=== PATIENT | female | born 1955 | race African-American/Black ===

== ENCOUNTER 2017-05-12 03:26 | Emergency (ER) | payer OTHER ==
[2017-05-12 03:37] VITALS: BMI 29.7
[2017-05-12 04:26] LABS: BASO % 0.5 % (0-2.0); HEMATOCRIT 38.4 % (32.4-45.2); LYMPH % 28.1 % (8-40); MCH 32.1 pg (25.7-33.7); MEAN CELL VOLUME 94.5 fl (80-96); MONO % 6.5 % (3.8-10.2); NEUT % 62.9 % (42.8-82.8); PLATELET COUNT 265 K/MM3 (134-434); RBC 4.06 M/mm3 (3.60-5.2); RDW 14.8 % (11.6-15.6); WHITE BLOOD COUNT 7.6 K/mm3 (4.0-10.0)
--- NOTE | 2017-05-12 04:38 | PDOC ---
History of Present Illness - General Chief Complaint: Palpitations Stated Complaint: PAIN,,RAPID HEART BEAT Time Seen by Provider: 05/12/17 04:16 History Source: Patient Exam Limitations: No Limitations - History of Present Illness Travel History: No Initial Comments: 05/12/17 06:13 Best Contact: Pmhx:HTN, Hyperlipidemia Pshx:N/A Allergies: NKDA 62-year-old female presents to the emergency department complaining of epigastric and right upper quadrant pain. Patient states on April 27, she had cornbeef and cabbage. Within 2 hours, she started experiencing right upper quadrant/epigastric pain. The symptoms worsen after taking [place]. The pain is alleviated intermittently at rest. Over the course of 2 weeks, she's been experiencing right upper quadrant 4/10 "palpation"discomfort intermittently after almost every meal. She denies fever/chills, nausea/vomiting , chest pain, shortness of breath, flank pains. Patient has no history of gallbladder disease Past History - Past Medical History Allergies/Adverse Reactions: Allergies Allergy/AdvReac Type Severity Reaction Status Date / Time No Known Allergies Allergy Verified 05/12/17 03:36 Home Medications: Ambulatory Orders Amlodipine Besylate 10 mg PO DAILY 05/12/17 Aspirin [ASA -] 81 mg PO DAILY 05/12/17 Atorvastatin Ca [Lipitor] 20 mg PO DAILY 05/12/17 Hydrochlorothiazide [Hctz -] 25 mg PO DAILY 05/12/17 Multivitamin [One Daily] 1 each PO DAILY 05/12/17 - Suicide/Smoking/Psychosocial Hx Smoking History: Current every day smoker Have you smoked in the past 12 months: Yes Number of Cigarettes Smoked Daily: 10 Information on smoking cessation initiated: No Hx Alcohol Use: No Drug/Substance Use Hx: No Review of Systems - Review of Systems Able to Perform ROS?: Yes Comments:: 05/12/17 06:08 CONSTITUTIONAL: Absent: fever, chills, diaphoresis, generalized weakness, malaise, loss of appetite HEENT: Absent: rhinorrhea, nasal congestion, throat pain, throat swelling, difficulty swallowing, mouth swelling, ear pain, eye pain, visual Changes CARDIOVASCULAR: Absent: chest pain, loss of consciousness, palpitations, irregular heart rate, peripheral edema RESPIRATORY: Absent: cough, shortness of breath, dyspnea with exertion, orthopnea, wheezing, stridor, hemoptysis GASTROINTESTINAL: +RUQ pain/epigastric pain Absent:abdominal distension, nausea, vomiting, diarrhea, constipation, melena, hematochezia GENITOURINARY: Absent: dysuria, frequency, urgency, hesitancy, hematuria, flank pain, genital pain MUSCULOSKELETAL: Absent: myalgia, arthralgia, joint swelling SKIN: Absent: rash, itching, pallor HEMATOLOGIC/IMMUNOLOGIC: Absent: easy bleeding, easy bruising, lymphadenopathy, frequent infections Is the patient limited Tajik proficient: No *Physical Exam - Vital Signs Last Vital Signs Temp Pulse Resp BP Pulse Ox 97.6 F 62 18 171/65 96 05/12/17 03:36 05/12/17 03:36 05/12/17 03:36 05/12/17 03:36 05/12/17 03:36 - Physical Exam Comments: 05/12/17 06:09 GENERAL: Well developed, well nourished. Awake and alert. No acute distress. HEENT: Normocephalic, atraumatic. PERRLA, EOMI. No conjunctival pallor. Sclera are non- icteric. Moist mucous membranes. Oropharynx is clear. NECK: Supple. Full ROM. No JVD. Carotid pulses 2+ and symmetric, without bruits. No thyromegaly. No lymphadenopathy. CARDIOVASCULAR: Regular rate and rhythm. No murmurs, rubs, or gallops. Distal pulses are 2+ and symmetric. PULMONARY: No evidence of respiratory distress. Lungs clear to auscultation bilaterally. No wheezing, rales or rhonchi. ABDOMINAL: +RUQ/Epigastric pain Soft. Non-distended. No rebound or guarding. No organomegaly. Normoactive bowel sounds. MUSCULOSKELETAL Normal range of motion at all joints. No bony deformities or tenderness. No CVA tenderness. EXTREMITIES: No cyanosis. No clubbing. No edema. No calf tenderness. SKIN: Warm and dry. Normal capillary refill. No rashes. No jaundice. ED Treatment Course - LABORATORY CBC & Chemistry Diagram: 05/12/17 04:13 05/12/17 04:13 - ADDITIONAL ORDERS Additional order review: 05/12/17 04:13 RBC 4.06 MCV 94.5 MCHC 34.0 RDW 14.8 MPV 8.0 Neutrophils % 62.9 Lymphocytes % 28.1 Monocytes % 6.5 Eosinophils % 2.0 Basophils % 0.5 - RADIOLOGY Radiograph Interpretation: 05/12/17 06:16 US limited: Progress Note - Progress Note Progress Note: 0701hrs: Signed out to SARA Vargas *DC/Admit/Observation/Transfer Diagnosis at time of Disposition: Abdominal pain Qualifiers: Abdominal location: right lower quadrant Qualified Code(s): R10.31 - Right lower quadrant pain - Referrals - Patient Instructions - Post Discharge Activity
[2017-05-12] MEDS ORDERED: FAMOTIDINE IV 20 MG/12 ML VIAL IVPUSH ONE (04:55)
[2017-05-12 05:08] LABS: ALBUMIN 3.5 g/dl (3.4-5.0); ANION GAP 4 (8-16); BILIRUBIN,TOTAL 0.2 mg/dL (0.2-1.0); CHLORIDE 105 mmol/L (98-107); CO2 30 mmol/L (21-32); GLUCOSE,RANDOM 105 mg/dL (74-106); POTASSIUM 4.1 mmol/L (3.5-5.1); SGOT/AST 19 U/L (15-37); SODIUM 139 mmol/L (136-145); TOT PROT 7.5 g/dl (6.4-8.2)
[2017-05-12] MEDS ORDERED: FAMOTIDINE 20 MG/50 ML IVPB 20 MG/50 ML MG IVPB ONE (05:25)
[2017-05-12 05:47] LABS: ALK PHOS 126 U/L (45-117); BLOOD UREA NITROGEN 16 mg/dL (7-18); SGPT/ALT 17 U/L (12-78)
[2017-05-12] MEDS ORDERED: morphine CARPU-JECT 2 MG/1 ML DISP.SYRIN IVPUSH ONE (05:50)
[2017-05-12] MEDS ORDERED: morphine SULFATE 4 MG/ML VIAL ONE (05:58)
--- NOTE | 2017-05-12 07:52 | PDOC ---
*Physical Exam - Vital Signs Last Vital Signs Temp Pulse Resp BP Pulse Ox 97.6 F 62 18 171/65 96 05/12/17 03:36 05/12/17 03:36 05/12/17 03:36 05/12/17 03:36 05/12/17 03:36 - Physical Exam General Appearance: Yes: Appropriately Dressed. No: Apparent Distress HEENT: positive: Normal Voice Neck: positive: Supple Respiratory/Chest: negative: Respiratory Distress Gastrointestinal/Abdominal: positive: Normal Bowel Sounds, Soft. negative: Tender, Distended, Guarding, Rebound Musculoskeletal: negative: CVA Tenderness Integumentary: positive: Dry, Warm Neurologic: positive: Fully Oriented, Alert, Normal Mood/Affect ED Treatment Course - LABORATORY CBC & Chemistry Diagram: 05/12/17 04:13 05/12/17 04:13 - ADDITIONAL ORDERS Additional order review: Laboratory Results 05/12/17 05/12/17 04:13 04:12 Sodium 139 Potassium 4.1 Chloride 105 Carbon Dioxide 30 Anion Gap 4 L BUN 16 Creatinine 1.0 Creat Clearance w eGFR 56.56 Random Glucose 105 Calcium 9.0 Total Bilirubin 0.2 AST 19 ALT 17 Alkaline Phosphatase 126 H Troponin I < 0.02 Total Protein 7.5 Albumin 3.5 Lipase 128 TSH 2.33 05/12/17 04:13 RBC 4.06 MCV 94.5 MCHC 34.0 RDW 14.8 MPV 8.0 Neutrophils % 62.9 Lymphocytes % 28.1 Monocytes % 6.5 Eosinophils % 2.0 Basophils % 0.5 - Medications Given in the ED: ED Medications Discontinued Medications Generic Name Dose Route Start Last Admin Trade Name Carolann PRN Reason Stop Dose Admin Famotidine 20 mg in 12 mls @ 144 mls/hr 05/12/17 04:55 05/12/17 06:04 Pepcid 20 Mg/12 Ml Push IVPUSH 05/12/17 04:59 144 mls/hr ONCE ONE Administration Morphine Sulfate 2 mg 05/12/17 05:50 05/12/17 06:04 Morphine Injection - IVPUSH 05/12/17 05:51 2 mg ONCE ONE Administration Medical Decision Making - Medical Decision Making 05/12/17 07:51 Signed out to me at 7am 62 yo F, no sig hx, here w/ RUQ pain. labs unremarkable. US pending. Pain since improved w/ meds 04/01/18 10:14 Pt status post ultrasound was read as no obvious cholelithiasis or evidence of cholecystitis. Possible diffuse hepatic steatosis seen with a 2 cm R hepatic cyst. States pain has since improved. Patient states she's had right upper quadrant pain for several days with no association with food. No nausea, vomiting, changes to bowel movements, fever or chills. No history of similar pain in the past. No history of gallstones or kidney stones. No h/o excessive ETOH intake. Patient denies any chest pain or shortness of breath 05/12/17 10:42 Pain improved with meds. Patient stable for discharge with PMD follow-up *DC/Admit/Observation/Transfer Diagnosis at time of Disposition: RUQ pain, Fatty liver - Discharge Dispostion Disposition: HOME Condition at time of disposition: Improved - Prescriptions Prescriptions: Tramadol HCl 50 mg PO Q6H #12 tablet MDD 200 mg - Referrals - Patient Instructions Printed Discharge Instructions: Nonalcoholic Fatty Liver Disease Additional Instructions: Your ultrasound showed a condition called fatty liver. This can be caused by alcohol, diet high in fats, high cholesterol, etc Take medication as directed and follow up with your PMD next week - Post Discharge Activity
[2017-05-12] MEDS ORDERED: traMADol HCL 50 MG TABLET PO ONE (10:17)
[2017-05-12] MEDS ORDERED: KETOROLAC TROMETHAMINE 30 MG/1 ML VIAL IVPUSH ONE (10:17)
[2017-05-12] MEDS ORDERED: traMADol HCL 50 MG TABLET ONE (10:49)
[2017-05-12] MEDS ORDERED: KETOROLAC TROMETHAMINE 30 MG/1 ML VIAL ONE (10:50)
[2017-05-12 11:22] VITALS: BP 147/65; PULSE 63; TEMP 97.8
--- NOTE | 2017-05-12 15:59 | EKG ---
Test Reason : Blood Pressure : / mmHG Vent. Rate : 060 BPM Atrial Rate : 060 BPM P-R Int : 142 ms QRS Dur : 076 ms QT Int : 460 ms P-R-T Axes : 063 010 041 degrees QTc Int : 460 ms NORMAL SINUS RHYTHM LEFT ATRIAL ENLARGEMENT NONSPECIFIC ST ABNORMALITY BORDERLINE ECG NO PREVIOUS ECGS AVAILABLE Confirmed by MD KUSHAL, JAN ([id number]) on 05/12/2017 3:58:59 PM Referred By: Confirmed By:JAN FATIMA MD
== END 2017-05-12 11:22 | disposition home or self-care (01) ==
LOC: JER 03:26
PROC: 3E033GC Introduction of Other Therapeutic Substance into Peripheral Vein, Percutaneous Approach (ICD-10-PCS; principal; 2017-05-12)
PROC: 3E033NZ Introduction of Analgesics, Hypnotics, Sedatives into Peripheral Vein, Percutaneous Approach (ICD-10-PCS; 2017-05-12)
PROC: 3E0333Z Introduction of Anti-inflammatory into Peripheral Vein, Percutaneous Approach (ICD-10-PCS; 2017-05-12)
DX: K76.0 Fatty (change of) liver, not elsewhere classified (principal); Z79.82 Long term (current) use of aspirin
CPT/HCPCS: 36415; 71045-TC-FY; 76705-TC; 80053; 83690; 84443; 84484; 85025; 93005; 93010; 96374; 96375; 99285-25

== ENCOUNTER 2019-08-07 23:31 | Inpatient (IN) | payer OTHER ==
[2019-08-07 23:45] VITALS: BMI 29.7
--- NOTE | 2019-08-07 23:47 | PDOC ---
Attending Attestation - Resident Resident Name: MariselaAndressa - ED Attending Attestation I have performed the following: I have examined & evaluated the patient, The case was reviewed & discussed with the resident, I agree w/resident's findings & plan - HPI HPI: 08/08/19 02:17 Pt tripped at home. She has a foot drag on the left side due to old CVA deficits. She fell onto the left knee, and she twisted and broke her ankle. Pt has no other complains. 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) - Physicial Exam PE: 08/08/19 02:19 Heart and Lungs normal HEENT normal abd soft NT ND no flank pain left ankle deformity medially and laterally - Medical Decision Making 08/08/19 01:57 NIKITA RILEY Right parietal and occipital ischemic infarcts have evolved since 06/11/19. Patient Name: NIKITA RILEY THIS IS A PRELIMINARY REPORT FROM IMAGING NURSING CLINICAL DIRECTOR DATE OF SERVICE: 2019-08-08 00:24:54 IMAGES: 139 EXAM: CT HEAD WITHOUT CONTRAST No acute hemorrhage, mass or acute territorial infarct. Chronic infarcts right parietal and occipital lobes and bilateral cerebellum. Age-related involutional changes. No skull fracture. Mucoperiosteal thickening paranasal sinuses. Visualized mastoid air cells clear. Dental disease. 08/08/19 01:58 Patient Name: NIKITA RILEY THIS IS A PRELIMINARY REPORT FROM IMAGING NURSING CLINICAL DIRECTOR DATE OF SERVICE: 2019-08-08 00:12:42 IMAGES: 276 EXAM: CT CERVICAL SPINE WITHOUT CONTRAST No acute fracture or traumatic malalignment. Multilevel spondylosis. Moderate canal stenosis C5-C6. Slight reversal of cervical lordosis, possibly due to positioning or muscle spasm. 08/08/19 02:17 Chem is normal Discharge - Discharge Information Problems reviewed: Yes Clinical Impression/Diagnosis: Bimalleolar ankle fracture Qualifiers: Encounter type: initial encounter Fracture type: closed Laterality: left Qualified Code(s): S82.842A - Displaced bimalleolar fracture of left lower leg, initial encounter for closed fracture Closed head injury Qualifiers: Encounter type: initial encounter Qualified Code(s): S09.90XA - Unspecified injury of head, initial encounter Fall Qualifiers: Encounter type: initial encounter Qualified Code(s): W19.XXXA - Unspecified fall, initial encounter Condition: Stable - Follow up/Referral - Patient Discharge Instructions - Post Discharge Activity
[2019-08-07] MEDS ORDERED: ACETAMINOPHEN 1000 MG/100 ML VIAL (NON FORMULARY) IVPB ONE (23:59)
[2019-08-07] MEDS ORDERED: morphine CARPU-JECT 4 MG/1 ML DISP.SYRIN IVPUSH ONE (23:59)
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
[2019-08-08] MEDS ORDERED: morphine SULFATE 4 MG/ML VIAL ONE (01:13)
[2019-08-08] MEDS ORDERED: ACETAMINOPHEN INJECTION 100 ML IVPB ONE (01:26)
[2019-08-08 01:29] LABS: BASO % 0.2 % (0-2.0); EOS % 0.3 % (0-4.5); HEMATOCRIT 39.6 % (32.4-45.2); LYMPH % 10.1 % (8-40); MCH 30.6 pg (25.7-33.7); MCHC 32.8 g/dl (32.0-36.0); MEAN CELL VOLUME 93.1 fl (80-96); MEAN PLT VOLUME 8.8 fl (7.5-11.1); MONO % 4.4 % (3.8-10.2); PLATELET COUNT 272 K/MM3 (134-434); RBC 4.26 M/mm3 (3.60-5.2); RDW 15.7 % (11.6-15.6); WHITE BLOOD COUNT 10.7 K/mm3 (4.0-10.0)
[2019-08-08 01:53] LABS: ALBUMIN 3.9 g/dl (3.4-5.0); BILIRUBIN,TOTAL 0.2 mg/dL (0.2-1); BLOOD UREA NITROGEN 19.3 mg/dL (7-18); CALCIUM 9.3 mg/dL (8.5-10.1); TOT PROT 7.8 g/dl (6.4-8.2)
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
[2019-08-08 02:42] LABS: INR 1.05 (0.83-1.09); PROTHROMBIN TIME (PATIENT) 12.4 SEC (9.7-13.0)
[2019-08-08 02:44] LABS: ACTIVATED PTT 25.1 SECONDS (25.2-36.5)
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
[2019-08-08] MEDS ORDERED: HEPARIN NA (PORCINE) 5,000 UNITS/ML 1ML VIAL ONE (05:46)
[2019-08-08 06:06] LABS: HEMATOCRIT 37.5 % (32.4-45.2); HEMOGLOBIN 12.4 GM/dL (10.7-15.3); MCH 30.3 pg (25.7-33.7); MEAN CELL VOLUME 91.8 fl (80-96); MEAN PLT VOLUME 8.3 fl (7.5-11.1); PLATELET COUNT 238 K/MM3 (134-434); RBC 4.08 M/mm3 (3.60-5.2); RDW 15.6 % (11.6-15.6); WHITE BLOOD COUNT 8.5 K/mm3 (4.0-10.0)
[2019-08-08] MEDS: HEPARIN NA (PORCINE) 5,000 UNITS/ML 1ML VIAL SQ SCH ×3 (06:09→22:00)
[2019-08-08 06:29] LABS: ALBUMIN 3.4 g/dl (3.4-5.0); BILIRUBIN,TOTAL 0.3 mg/dL (0.2-1); BLOOD UREA NITROGEN 17.2 mg/dL (7-18); CALCIUM 8.7 mg/dL (8.5-10.1); PHOSPHOROUS 3.8 mg/dL (2.5-4.9); POTASSIUM 3.5 mmol/L (3.5-5.1); TOT PROT 7.1 g/dl (6.4-8.2)
[2019-08-08] MEDS: SODIUM CHLORIDE 1,000 ML IV SCH ×2 (08:13→22:09)
--- NOTE | 2019-08-08 09:40 | CON.NEURO ---
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 No: Alzheimer's Cardio/Vascular: Yes: HTN, Hyperlipdemia. No: AFIB - Alcohol/Substance Use Hx Alcohol Use: Yes - Smoking History Smoking history: Never smoked Have you smoked in the past 12 months: No Aproximately how many cigarettes per day: 10 Home Medications - Allergies Allergies/Adverse Reactions: Allergies Allergy/AdvReac Type Severity Reaction Status Date / Time No Known Allergies Allergy Verified 08/07/19 23:45 - Home Medications Home Medications: Ambulatory Orders Amlodipine Besylate 10 mg PO DAILY 05/12/17 Aspirin [ASA -] 81 mg PO DAILY tab.chew 06/15/19 Atorvastatin Ca [Lipitor] 80 mg PO HS tablet 06/15/19 Clopidogrel Bisulfate [Plavix -] 75 mg PO DAILY tablet 06/15/19 Hydrochlorothiazide [Hctz -] 12.5 mg PO DAILY cap 06/15/19 Family Medical History Family History: Unremarkable Review of Systems - Review of Systems Constitutional: reports: No Symptoms Eyes: reports: No Symptoms Neurological: reports: Dizziness, Headache, Incoordination Physical Exam-Neuro Vital Signs: Vital Signs Temperature 98.4 F 08/08/19 06:09 Pulse Rate 77 08/08/19 06:09 Respiratory Rate 14 08/08/19 06:09 Blood Pressure 156/79 08/08/19 06:09 O2 Sat by Pulse Oximetry (%) 96 08/08/19 06:09 Constitutional: Yes: Well Nourished Neck: Yes: WNL Cardiovascular: Yes: WNL Labs: CBC, BMP 08/08/19 05:58 08/08/19 05:58 INR, PTT INR 1.05 (0.83-1.09) 08/08/19 02:12 - Neuro Exam Level Of Consciousness: Yes: Oriented to Person, Oriented to Place, Oriented to Time Eyes: Yes: PERRLA Speech: WNL Dominant Hand: Right Cranial Nerves II-XII Intact: Yes Gag: Present DTR's: 0 Left Bicep, 0 Right Bicep, 1+ Left Tricep, 1+ Right Tricep, 1+ Left Brachioradialis, 1+ Right Brachioradialis Response to light touch: Normal Response to pain prick: Normal Response to temperature: Abnormal Response to vibration: Abnormal Motor Strength: 3/5: Left Arm, Left Leg, 4/5: Right Arm, Right Leg Gait: Deferred Imaging - Results Cat Scan: Image Reviewed MRI: Image Reviewed Problem List - Problems (1) Bimalleolar ankle fracture Code(s): S82.843A - DISPLACED BIMALLEOLAR FRACTURE OF UNSP LOWER LEG, INIT Qualifiers: Encounter type: initial encounter Fracture type: closed Laterality: left Qualified Code(s): S82.842A - Displaced bimalleolar fracture of left lower leg, initial encounter for closed fracture (2) Bradycardia Code(s): R00.1 - BRADYCARDIA, UNSPECIFIED (3) CVA (cerebral vascular accident) Code(s): I63.9 - CEREBRAL INFARCTION, UNSPECIFIED Qualifiers: CVA mechanism: unspecified Qualified Code(s): I63.9 - Cerebral infarction, unspecified Assessment/Plan Doubt new CVA Bradycardia Orthoststic dysfunction 1. Fall precautions 2. Head Ct 08/08 3. Check orthostais 4. Asa + Plavix gris sierra Many thanks Laura Escobedo MD
[2019-08-08] MEDS ORDERED: HYDROCHLOROTHIAZIDE 12.5 MG CAPSULE (FP) PO SCH (10:00)
[2019-08-08] MEDS ORDERED: amLODIPine BESYLATE 10 MG TABLET (FP) PO SCH (10:00)
[2019-08-08] MEDS ORDERED: CLOPIDOGREL BISULFATE 75 MG TABLET (FP) PO SCH (10:00)
[2019-08-08] MEDS ORDERED: MORPHINE SULFATE 2 MG/ML VIAL ONE (11:33)
[2019-08-08] MEDS: MORPHINE SULFATE 2 MG/ML VIAL IVPUSH PRN ×2 (11:37→18:52)
--- NOTE | 2019-08-08 13:48 | EKG ---
Test Reason : Blood Pressure : / mmHG Vent. Rate : 062 BPM Atrial Rate : 062 BPM P-R Int : 146 ms QRS Dur : 078 ms QT Int : 456 ms P-R-T Axes : 067 003 051 degrees QTc Int : 462 ms NORMAL SINUS RHYTHM WITH SINUS ARRHYTHMIA NONSPECIFIC T WAVE ABNORMALITY ABNORMAL ECG WHEN COMPARED WITH ECG OF 02-JUL-2019 19:34, PREMATURE VENTRICULAR COMPLEXES ARE NO LONGER PRESENT Confirmed by MD KUSHAL, JAN ([id number]) on 08/08/2019 1:48:17 PM Referred By: Confirmed By:JAN FATIMA MD
--- NOTE | 2019-08-08 14:07 | PN ---
Physical Exam: SUBJECTIVE: Patient seen and examined in the ED awaiting bed assignment. pain controlled on morphine. denies chest pain or shortness of breath. tells me she had episodes of palpitations days prior to falling. OBJECTIVE: Patient is a 64 year female with a significant past medical history of hypertension, hld, TBI in 2005, CVA 05/2019 who presents to the ED on 08/07/2019 came s/p Fall. Patient says she was walking yesterday when she suddenly felt lightheaded which caused her to fall on her left ankle. Patient denies sob, chest pain, palpitations, numbness, tingling, nausea, vomiting, headache, weakness, slurring of speech, urinary changes. Vital Signs Period Temp Pulse Resp BP Sys/Merritt Pulse Ox Last 24 Hr 97.7 F-98.8 F 47-77 14-20 118-156/55-79 96-97 GENERAL: The patient is awake, alert, and fully oriented, in no acute distress. HEAD: Normal with no signs of trauma. EYES: PERRL, extraocular movements intact, sclera anicteric, conjunctiva clear. No ptosis. ENT: Ears normal, nares patent, oropharynx clear without exudates, moist mucous membranes. NECK: Trachea midline, full range of motion, supple. LUNGS: Breath sounds equal, clear anteriorly HEART: Regular rate and rhythm ABDOMEN: Soft, nontender, nondistended, normoactive bowel sounds EXTREMITIES: left foot ankle fracture on cast. toes warm, able to move exposed toes. NEUROLOGICAL: Normal speech, gait not observed. PSYCH: Normal mood, normal affect. SKIN: Warm, dry, normal turgor, no rashes or lesions noted Laboratory Results - last 24 hr 08/08/19 08/08/19 08/08/19 01:00 01:00 01:00 WBC 10.7 H RBC 4.26 Hgb 13.0 Hct 39.6 MCV 93.1 MCH 30.6 MCHC 32.8 RDW 15.7 H Plt Count 272 MPV 8.8 Absolute Neuts (auto) 9.1 H Neutrophils % 85.0 H D Lymphocytes % 10.1 D Monocytes % 4.4 Eosinophils % 0.3 Basophils % 0.2 Nucleated RBC % 0 PT with INR INR PTT (Actin FS) Sodium 143 Potassium 4.0 Chloride 107 Carbon Dioxide 24 Anion Gap 12 BUN 19.3 H Creatinine 1.0 Est GFR (CKD-EPI)AfAm 69.92 Est GFR (CKD-EPI)NonAf 60.33 Random Glucose 122 H Calcium 9.3 Phosphorus Magnesium Total Bilirubin 0.2 AST 19 ALT 13 Alkaline Phosphatase 149 H Total Protein 7.8 Albumin 3.9 Blood Type A POSITIVE Antibody Screen Negative 08/08/19 08/08/19 08/08/19 02:12 05:58 05:58 WBC 8.5 RBC 4.08 Hgb 12.4 Hct 37.5 MCV 91.8 MCH 30.3 MCHC 33.0 RDW 15.6 Plt Count 238 MPV 8.3 Absolute Neuts (auto) Neutrophils % Lymphocytes % Monocytes % Eosinophils % Basophils % Nucleated RBC % PT with INR 12.40 INR 1.05 PTT (Actin FS) 25.1 L Sodium 141 Potassium 3.5 Chloride 108 H Carbon Dioxide 23 Anion Gap 11 BUN 17.2 Creatinine 1.0 Est GFR (CKD-EPI)AfAm 69.92 Est GFR (CKD-EPI)NonAf 60.33 Random Glucose 129 H Calcium 8.7 Phosphorus 3.8 Magnesium 2.0 Total Bilirubin 0.3 AST 19 ALT 13 Alkaline Phosphatase 138 H Total Protein 7.1 Albumin 3.4 Blood Type Antibody Screen Active Medications Generic Name Dose Route Start Last Admin Trade Name Freq PRN Reason Stop Dose Admin Aspirin 81 mg 08/08/19 10:00 Asa - PO DAILY [facility] Atorvastatin Calcium 80 mg 08/08/19 22:00 Lipitor - PO HS [facility] Heparin Sodium (Porcine) 5,000 unit 08/08/19 06:00 08/08/19 06:09 Heparin - SQ 5,000 unit TID [facility] Administration Sodium Chloride 1,000 mls @ 100 mls/hr 08/08/19 07:30 08/08/19 08:13 Normal Saline - IV 100 mls/hr ASDIR [facility] Administration Morphine Sulfate 2 mg 08/08/19 02:45 08/08/19 11:37 Morphine Sulfate IVPUSH 2 mg Q4H PRN Administration PAIN LEVEL 6-10 ASSESSMENT/PLAN: Problem List - Problems (1) Bimalleolar ankle fracture Assessment/Plan: s/p fall foot xray: a lateral malleolar fracture seen. ortho follow up. pain management with morphine, maintain left foot elevated on 3 pillows. monitor limb. bowel regimen Code(s): S82.843A - DISPLACED BIMALLEOLAR FRACTURE OF UNSP LOWER LEG, INIT Qualifiers: Encounter type: initial encounter Fracture type: closed Laterality: left Qualified Code(s): S82.842A - Displaced bimalleolar fracture of left lower leg, initial encounter for closed fracture (2) Fall Assessment/Plan: for physical therapy pending ortho recommendations on weight bearing. Code(s): W19.XXXA - UNSPECIFIED FALL, INITIAL ENCOUNTER Qualifiers: Encounter type: initial encounter Qualified Code(s): W19.XXXA - Unspecified fall, initial encounter (3) CVA (cerebral vascular accident) Assessment/Plan: on asa/plavix. seen by neuro head ct negative for acute process Code(s): I63.9 - CEREBRAL INFARCTION, UNSPECIFIED Qualifiers: CVA mechanism: unspecified Qualified Code(s): I63.9 - Cerebral infarction, unspecified (4) Fatty liver Assessment/Plan: monitor labs Code(s): K76.0 - FATTY (CHANGE OF) LIVER, NOT ELSEWHERE CLASSIFIED (5) HLD (hyperlipidemia) Assessment/Plan: on lipitor Code(s): E78.5 - HYPERLIPIDEMIA, UNSPECIFIED (6) DVT prophylaxis Assessment/Plan: heparin tid Code(s): Z29.9 - ENCOUNTER FOR PROPHYLACTIC MEASURES, UNSPECIFIED Visit type - Emergency Visit Emergency Visit: Yes ED Registration Date: 08/08/19 Care time: The patient presented to the Emergency Department on the above date and was hospitalized for further evaluation of their emergent condition. - New Patient This patient is new to me today: No - Critical Care Critical Care patient: No - Discharge Referral Referred to [facility] Med P.C.: No
[2019-08-08] MEDS: ASPIRIN 81 MG CHEWABLE TABLETS PO SCH (16:04)
[2019-08-08] MEDS: HYDROCHLOROTHIAZIDE 12.5 MG CAPSULE (FP) PO SCH (16:05)
[2019-08-08] MEDS: amLODIPine BESYLATE 10 MG TABLET (FP) PO SCH (16:05)
--- NOTE | 2019-08-08 18:56 | CONSULT ---
Consult Consult Specialty:: orthopedics Referred by:: er Reason for Consultation:: Left ankle - History of Present Illness History of Present Illness: 64y/o female c/o left ankle pain after a fall late last night. She denies LOC. She was walking with a cane and has been recovering from recent CVA which she states made her left leg and arm slightly weak. She denies any numbness or tingling in the extremity. No prior surgical hx of the left ankle. Pain worse with motion and better with rest. No other associated, aggravating or relieving factors. 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 No: AFIB ...: No - Alcohol/Substance Use Hx Alcohol Use: Yes - Smoking History Smoking history: Current every day smoker Have you smoked in the past 12 months: Yes Aproximately how many cigarettes per day: 10 Home Medications - Allergies Allergies/Adverse Reactions: Allergies Allergy/AdvReac Type Severity Reaction Status Date / Time No Known Allergies Allergy Verified 08/07/19 23:45 - Home Medications Home Medications: Ambulatory Orders Amlodipine Besylate 10 mg PO DAILY 05/12/17 Aspirin [ASA -] 81 mg PO DAILY tab.chew 06/15/19 Atorvastatin Ca [Lipitor] 80 mg PO HS tablet 06/15/19 Clopidogrel Bisulfate [Plavix -] 75 mg PO DAILY tablet 06/15/19 Hydrochlorothiazide [Hctz -] 12.5 mg PO DAILY cap 06/15/19 Review of Systems - Review of Systems Constitutional: reports: No Symptoms Eyes: reports: No Symptoms HENT: reports: No Symptoms Neck: reports: No Symptoms Cardiovascular: reports: No Symptoms Respiratory: reports: No Symptoms Gastrointestinal: reports: No Symptoms Genitourinary: reports: No Symptoms Breasts: reports: No Symptoms Reported Musculoskeletal: reports: Extremity Pain Integumentary: reports: No Symptoms Neurological: reports: No Symptoms Endocrine: reports: No Symptoms Hematology/Lymphatic: reports: No Symptoms Psychiatric: reports: No Symptoms Physical Exam Vital Signs: Vital Signs Temperature 98.2 F 08/08/19 18:00 Pulse Rate 51 L 08/08/19 18:00 Respiratory Rate 18 08/08/19 18:00 Blood Pressure 159/63 08/08/19 18:00 O2 Sat by Pulse Oximetry (%) 98 08/08/19 16:18 Constitutional: Yes: Well Nourished, No Distress, Calm Musculoskeletal: Yes: Other (Right ankle. There is a 1cm superficial laceraton consistant with inside out laceration. No active bleeding and skin is closed. There is palpaple bone close to the skin here. there is tendernes along the ankle medially and laterally and there is slight deformity. She has intact sensation thoughtout the extremity and is able to wiggle her toes. She has pain with motion of the ankle. Well perfused.) Labs: CBC, BMP 08/08/19 05:58 08/08/19 05:58 Imaging - Results X-ray: Report Reviewed, Image Reviewed (Bimalleolar fracture with significant lateral displacement of the ankle.) Assessment/Plan #1 Left bimalleolar fracture -Discussed today's findings and treatment options with the patient. We discussed both surgical and non surgical treatment options. The fracture is displaced and I have recommended closed reduction with ORIF to follow. We have decided to proceed with a closed reduction today. Procedure closed reduction, left ankle: The splint from the ER was removed. a small 1cm laceration/abrasion was visualized near the medial malleous. No active bleeding and the skin appears closed. There is deformity of the ankle. Abundant webril was used to pad the ankle and heel. A posterior and sugartong splint was then placed and a manipulation was performed before the splint was hardened. The ankle was reduced and held in a reduced position until the splint was hardened. The patient tolerated the procedure well. Elevation and post procedure inst ructions were givent. -Discussed case with Dr. Hernandez. Ankle swelling is minimal at this time but will likely worsen over next few days. continue elevation. will reassess tomorrow. -ABX ordered x24h -DVT prophylaxis -pain control
[2019-08-08] MEDS: AMPICILLIN NA/SULBACTAM NA 1.5 GM in SODIUM CHLORIDE 100 ML IVPB SCH (21:53)
[2019-08-08] MEDS: DOCUSATE SODIUM 100 MG CAPSULE (FP) PO SCH (21:56)
[2019-08-08] MEDS: ATORVASTATIN CA 80 MG TABLET (FP) PO SCH (21:56)
[2019-08-09] MEDS: AMPICILLIN NA/SULBACTAM NA 1.5 GM in SODIUM CHLORIDE 100 ML IVPB SCH ×3 (02:21→14:25)
[2019-08-09] MEDS: HEPARIN NA (PORCINE) 5,000 UNITS/ML 1ML VIAL SQ SCH ×3 (06:16→21:32)
[2019-08-09] MEDS: DOCUSATE SODIUM 100 MG CAPSULE (FP) PO SCH ×3 (06:16→21:32)
[2019-08-09] MEDS: SODIUM CHLORIDE 1,000 ML IV SCH (07:54)
[2019-08-09] MEDS ORDERED: PT OWN MED DRAWER 7, Y5N ONE ×2 (08:27→14:16)
[2019-08-09] MEDS: ASPIRIN 81 MG CHEWABLE TABLETS PO SCH (09:01)
[2019-08-09] MEDS: HYDROCHLOROTHIAZIDE 12.5 MG CAPSULE (FP) PO SCH (09:01)
[2019-08-09] MEDS: amLODIPine BESYLATE 10 MG TABLET (FP) PO SCH (09:02)
[2019-08-09] MEDS: POLYETHYLENE GLYCOL 3350 119 GM BTL PO SCH (09:02)
[2019-08-09] MEDS: CLOPIDOGREL BISULFATE 75 MG TABLET (FP) PO SCH (09:02)
[2019-08-09] MEDS: MORPHINE SULFATE 2 MG/ML VIAL IVPUSH PRN (09:31)
--- NOTE | 2019-08-09 12:51 | PN ---
Progress Note, Physician History of Present Illness: She feels well. Her pain is well controlled. She has been elevating the LLE. - Current Medication List Current Medications: Active Medications Amlodipine Besylate (Norvasc -) 10 mg PO DAILY [facility] Last Admin: 08/09/19 09:02 Dose: 10 mg Documented by: Aspirin (Asa -) 81 mg PO DAILY [facility] Last Admin: 08/09/19 09:01 Dose: 81 mg Documented by: Atorvastatin Calcium (Lipitor -) 80 mg PO HS [facility] Last Admin: 08/08/19 21:56 Dose: 80 mg Documented by: Clopidogrel Bisulfate (Plavix -) 75 mg PO DAILY [facility] Last Admin: 08/09/19 09:02 Dose: 75 mg Documented by: Docusate Sodium (Colace -) 100 mg PO TID [facility] Last Admin: 08/09/19 06:16 Dose: 100 mg Documented by: Heparin Sodium (Porcine) (Heparin -) 5,000 unit SQ TID [facility] Last Admin: 08/09/19 06:16 Dose: 5,000 unit Documented by: Hydrochlorothiazide (Hctz -) 12.5 mg PO DAILY [facility] Last Admin: 08/09/19 09:01 Dose: 12.5 mg Documented by: Ampicillin Sodium/Sulbactam (Sodium 1.5 gm/ Sodium Chloride) 100 mls @ 200 mls/hr IVPB Q6H-IV [facility] Stop: 08/09/19 20:59 Last Admin: 08/09/19 09:09 Dose: 200 mls/hr Documented by: Morphine Sulfate (Morphine Sulfate) 2 mg IVPUSH Q4H PRN PRN Reason: PAIN LEVEL 6-10 Last Admin: 08/09/19 09:31 Dose: 2 mg Documented by: Polyethylene Glycol (Miralax (For Daily Use) -) 17 gm PO DAILY [facility] Last Admin: 08/09/19 09:02 Dose: 17 gm Documented by: - Objective Vital Signs: Vital Signs Temperature 99.0 F 08/09/19 08:03 Pulse Rate 70 08/09/19 08:03 Respiratory Rate 18 08/09/19 08:03 Blood Pressure 147/72 08/09/19 08:03 O2 Sat by Pulse Oximetry (%) 98 08/09/19 09:00 Constitutional: Yes: Well Nourished, No Distress, Calm Musculoskeletal: Yes: Other (Splint in place. Toes do not appear swollen. She is able to wiggle her toes. Sensation intact distally. Well perfused.) Labs: CBC, BMP 08/08/19 05:58 08/08/19 05:58 INR, PTT INR 1.05 (0.83-1.09) 08/08/19 02:12 - ....Imaging X-ray: Report Reviewed, Image Reviewed (Post reduction x-rays show improved alingment of the fractures and reduction of the ankle joint.) Assessment/Plan #1 Left Bimalleolar fracture/dislocation, reduced. -Continue elevation -Pain control -DVT prophylaxis -Plan for ORIF during the week depending on skin condition.
--- NOTE | 2019-08-09 16:00 | PN ---
Physical Exam: SUBJECTIVE: Patient seen and examined at the bedside. laying in bed, eating lunch. states pain is controlled. OBJECTIVE: Patient is a 64 year female with a significant past medical history of hypertension, hld, TBI in 2005, CVA 05/2019 who presents to the ED on 08/07/2019 came s/p Fall. Patient says she was walking yesterday when she suddenly felt lightheaded which caused her to fall on her left ankle. Patient denies sob, chest pain, palpitations, numbness, tingling, nausea, vomiting, headache, weakness, slurring of speech, urinary changes. Vital Signs Period Temp Pulse Resp BP Sys/Merritt Pulse Ox Last 24 Hr 98.1 F-99.0 F 51-70 16-18 109-159/60-72 98-98 GENERAL: The patient is awake, alert, and fully oriented, in no acute distress. HEAD: Normal with no signs of trauma. EYES: PERRL, extraocular movements intact, sclera anicteric, conjunctiva clear. No ptosis. ENT: Ears normal, nares patent, oropharynx clear without exudates, moist mucous membranes. NECK: Trachea midline, full range of motion, supple. LUNGS: Breath sounds equal, clear anteriorly HEART: Regular rate and rhythm ABDOMEN: Soft, nontender, nondistended, normoactive bowel sounds EXTREMITIES: left foot ankle fracture on cast. toes warm, able to move exposed toes. NEUROLOGICAL: Normal speech, gait not observed. PSYCH: Normal mood, normal affect. SKIN: Warm, dry, normal turgor, no rashes or lesions noted Laboratory Results - last 24 hr 08/08/19 01:30 COVID-19 (ELIUD) Not detected Active Medications Generic Name Dose Route Start Last Admin Trade Name Freq PRN Reason Stop Dose Admin Amlodipine Besylate 10 mg 08/08/19 15:45 08/09/19 09:02 Norvasc - PO 10 mg DAILY [facility] Administration Aspirin 81 mg 08/08/19 10:00 08/09/19 09:01 Asa - PO 81 mg DAILY [facility] Administration Atorvastatin Calcium 80 mg 08/08/19 22:00 08/08/19 21:56 Lipitor - PO 80 mg HS [facility] Administration Clopidogrel Bisulfate 75 mg 08/09/19 10:00 08/09/19 09:02 Plavix - PO 75 mg DAILY [facility] Administration Docusate Sodium 100 mg 08/08/19 22:00 08/09/19 14:14 Colace - PO 100 mg TID [facility] Administration Heparin Sodium (Porcine) 5,000 unit 08/08/19 06:00 08/09/19 14:14 Heparin - SQ 5,000 unit TID [facility] Administration Hydrochlorothiazide 12.5 mg 08/08/19 15:45 08/09/19 09:01 Hctz - PO 12.5 mg DAILY [facility] Administration Ampicillin Sodium/Sulbactam 100 mls @ 200 mls/hr 08/08/19 21:00 08/09/19 14:25 Sodium 1.5 gm/ Sodium Chloride IVPB 08/09/19 20:59 200 mls/hr Q6H-IV [facility] Administration Morphine Sulfate 2 mg 08/08/19 02:45 08/09/19 09:31 Morphine Sulfate IVPUSH 2 mg Q4H PRN Administration PAIN LEVEL 6-10 Polyethylene Glycol 17 gm 08/09/19 10:00 08/09/19 09:02 Miralax (For Daily Use) - PO 17 gm DAILY [facility] Administration ASSESSMENT/PLAN: Problem List - Problems (1) Bimalleolar ankle fracture Assessment/Plan: s/p fall foot xray: a lateral malleolar fracture seen. ortho follow up. pain management with morphine, maintain left foot elevated on 3 pillows. monitor limb. s/p reduction by ortho. on antibiotics x 24 hours Code(s): S82.843A - DISPLACED BIMALLEOLAR FRACTURE OF UNSP LOWER LEG, INIT Qualifiers: Encounter type: initial encounter Fracture type: closed Laterality: left Qualified Code(s): S82.842A - Displaced bimalleolar fracture of left lower leg, initial encounter for closed fracture (2) Fall Assessment/Plan: for physical therapy pending ortho recommendations on weight bearing. Code(s): W19.XXXA - UNSPECIFIED FALL, INITIAL ENCOUNTER Qualifiers: Encounter type: initial encounter Qualified Code(s): W19.XXXA - Unspecified fall, initial encounter (3) CVA (cerebral vascular accident) Assessment/Plan: on asa/plavix. seen by neuro head ct negative for acute process Code(s): I63.9 - CEREBRAL INFARCTION, UNSPECIFIED Qualifiers: CVA mechanism: unspecified Qualified Code(s): I63.9 - Cerebral infarction, unspecified (4) Fatty liver Assessment/Plan: monitor labs Code(s): K76.0 - FATTY (CHANGE OF) LIVER, NOT ELSEWHERE CLASSIFIED (5) HLD (hyperlipidemia) Assessment/Plan: on lipitor Code(s): E78.5 - HYPERLIPIDEMIA, UNSPECIFIED (6) DVT prophylaxis Assessment/Plan: heparin tid Code(s): Z29.9 - ENCOUNTER FOR PROPHYLACTIC MEASURES, UNSPECIFIED Visit type - Emergency Visit Emergency Visit: Yes ED Registration Date: 08/08/19 Care time: The patient presented to the Emergency Department on the above date and was hospitalized for further evaluation of their emergent condition. - New Patient This patient is new to me today: No - Critical Care Critical Care patient: No - Discharge Referral Referred to [facility] Med P.C.: No
[2019-08-09] MEDS: ATORVASTATIN CA 80 MG TABLET (FP) PO SCH (21:32)
[2019-08-10] MEDS: DOCUSATE SODIUM 100 MG CAPSULE (FP) PO SCH ×3 (05:31→22:28)
[2019-08-10] MEDS: HEPARIN NA (PORCINE) 5,000 UNITS/ML 1ML VIAL SQ SCH ×3 (05:34→22:28)
[2019-08-10] MEDS: MORPHINE SULFATE 2 MG/ML VIAL IVPUSH PRN ×2 (05:54→23:30)
--- NOTE | 2019-08-10 09:27 | PN ---
Progress Note (short form) - Note Progress Note: 64 yo F with left bimalleolar fracture/dislocation, reduced and splinted in ER on 08/07. Patient is lying comfortably in bed with left leg elevated. Patient notes pain continues to improve each day. Last Vital Signs Temp Pulse Resp BP Pulse Ox 98.4 F 64 20 148/46 L 98 08/10/19 06:00 08/10/19 06:00 08/10/19 06:00 08/10/19 06:00 08/09/19 21:00 PE: LLE Jose Raul wrap removed for wound check: small healing wound to medial ankle has no discharge, erythema or increased warmth Splint in place and dressing changed Mild to moderate swelling No calf tenderness NVID 2+ DP pulses Laboratory Results - last 24 hr 08/08/19 01:30 COVID-19 (ELIUD) Not detected A: Left Bimalleolar fracture/dislocation, reduced P: Continue splint and elevation Strict NWB Pain control DVT prophylaxis Antibiotics as per ID Plan for left ankle ORIF on Saturday or this week
[2019-08-10] MEDS: CLOPIDOGREL BISULFATE 75 MG TABLET (FP) PO SCH (09:39)
[2019-08-10] MEDS: HYDROCHLOROTHIAZIDE 12.5 MG CAPSULE (FP) PO SCH (09:39)
[2019-08-10] MEDS: ASPIRIN 81 MG CHEWABLE TABLETS PO SCH (09:39)
[2019-08-10] MEDS: amLODIPine BESYLATE 10 MG TABLET (FP) PO SCH (09:39)
[2019-08-10] MEDS: POLYETHYLENE GLYCOL 3350 119 GM BTL PO SCH (09:39)
--- NOTE | 2019-08-10 10:26 | PN ---
Physical Exam: SUBJECTIVE: Patient seen and examined. denies pain or discomfort. OBJECTIVE: covid status: negative Patient is a 64 year female with a significant past medical history of hypertension, hld, TBI in 2005, CVA 05/2019 who presents to the ED on 08/07/2019 came s/p Fall. Patient says she was walking yesterday when she suddenly felt lightheaded which caused her to fall on her left ankle. Patient denies sob, chest pain, palpitations, numbness, tingling, nausea, vomiting, headache, weakness, slurring of speech, urinary changes. Vital Signs Period Temp Pulse Resp BP Sys/Merritt Pulse Ox Last 24 Hr 98.0 F-98.8 F 58-75 18-20 137-150/39-76 98 GENERAL: The patient is awake, alert, and fully oriented, in no acute distress. HEAD: Normal with no signs of trauma. EYES: PERRL, extraocular movements intact, sclera anicteric, conjunctiva clear. No ptosis. ENT: Ears normal, nares patent, oropharynx clear without exudates, moist mucous membranes. NECK: Trachea midline, full range of motion, supple. LUNGS: Breath sounds equal, clear anteriorly HEART: Regular rate and rhythm ABDOMEN: Soft, nontender, nondistended, normoactive bowel sounds EXTREMITIES: left foot ankle fracture on cast. toes warm, able to move exposed toes. NEUROLOGICAL: Normal speech, gait not observed. PSYCH: Normal mood, normal affect. SKIN: Warm, dry, normal turgor, no rashes or lesions noted Laboratory Results - last 24 hr 08/08/19 01:30 COVID-19 (ELIUD) Not detected Active Medications Generic Name Dose Route Start Last Admin Trade Name Johanq PRN Reason Stop Dose Admin Amlodipine Besylate 10 mg 08/08/19 15:45 08/10/19 09:39 Norvasc - PO 10 mg DAILY [facility] Administration Aspirin 81 mg 08/08/19 10:00 08/10/19 09:39 Asa - PO 81 mg DAILY [facility] Administration Atorvastatin Calcium 80 mg 08/08/19 22:00 08/09/19 21:32 Lipitor - PO 80 mg HS [facility] Administration Clopidogrel Bisulfate 75 mg 08/09/19 10:00 08/10/19 09:39 Plavix - PO 75 mg DAILY [facility] Administration Docusate Sodium 100 mg 08/08/19 22:00 08/10/19 05:31 Colace - PO 100 mg TID [facility] Administration Heparin Sodium (Porcine) 5,000 unit 08/08/19 06:00 08/10/19 05:34 Heparin - SQ 5,000 unit TID [facility] Administration Hydrochlorothiazide 12.5 mg 08/08/19 15:45 08/10/19 09:39 Hctz - PO 12.5 mg DAILY [facility] Administration Morphine Sulfate 2 mg 08/08/19 02:45 08/10/19 05:54 Morphine Sulfate IVPUSH 2 mg Q4H PRN Administration PAIN LEVEL 6-10 Polyethylene Glycol 17 gm 08/09/19 10:00 08/10/19 09:39 Miralax (For Daily Use) - PO 17 gm DAILY [facility] Administration ASSESSMENT/PLAN: Problem List - Problems (1) Bimalleolar ankle fracture Assessment/Plan: s/p fall foot xray: a lateral malleolar fracture seen. ortho follow up. pain management with morphine, maintain left foot elevated on 3 pillows. monitor limb. s/p reduction by ortho. on antibiotics x 24 hours for ORIF this week per ortho Code(s): S82.843A - DISPLACED BIMALLEOLAR FRACTURE OF UNSP LOWER LEG, INIT Qualifiers: Encounter type: initial encounter Fracture type: closed Laterality: left Qualified Code(s): S82.842A - Displaced bimalleolar fracture of left lower leg, initial encounter for closed fracture (2) Fall Assessment/Plan: for physical therapy pending ortho recommendations on weight bearing. Code(s): W19.XXXA - UNSPECIFIED FALL, INITIAL ENCOUNTER Qualifiers: Encounter type: initial encounter Qualified Code(s): W19.XXXA - Unspecified fall, initial encounter (3) CVA (cerebral vascular accident) Assessment/Plan: on asa/plavix. seen by neuro head ct negative for acute process Code(s): I63.9 - CEREBRAL INFARCTION, UNSPECIFIED Qualifiers: CVA mechanism: unspecified Qualified Code(s): I63.9 - Cerebral infarction, unspecified (4) Fatty liver Assessment/Plan: monitor labs Code(s): K76.0 - FATTY (CHANGE OF) LIVER, NOT ELSEWHERE CLASSIFIED (5) HLD (hyperlipidemia) Assessment/Plan: on lipitor Code(s): E78.5 - HYPERLIPIDEMIA, UNSPECIFIED (6) DVT prophylaxis Assessment/Plan: heparin tid Code(s): Z29.9 - ENCOUNTER FOR PROPHYLACTIC MEASURES, UNSPECIFIED Visit type - Emergency Visit Emergency Visit: Yes ED Registration Date: 08/10/19 Care time: The patient presented to the Emergency Department on the above date and was hospitalized for further evaluation of their emergent condition. - New Patient This patient is new to me today: No - Critical Care Critical Care patient: No - Discharge Referral Referred to [facility] Med P.C.: No
[2019-08-10 11:50] LABS: BASO % 0.2 % (0-2.0); EOS % 1.1 % (0-4.5); HEMATOCRIT 36.7 % (32.4-45.2); LYMPH % 26.4 % (8-40); MCH 30.1 pg (25.7-33.7); MCHC 32.7 g/dl (32.0-36.0); MEAN CELL VOLUME 91.8 fl (80-96); MEAN PLT VOLUME 9.3 fl (7.5-11.1); MONO % 6.7 % (3.8-10.2); NEUT % 65.6 % (42.8-82.8); PLATELET COUNT 237 K/MM3 (134-434); RDW 15.5 % (11.6-15.6); WHITE BLOOD COUNT 7.9 K/mm3 (4.0-10.0)
[2019-08-10 12:25] LABS: ALBUMIN 3.3 g/dl (3.4-5.0); BILIRUBIN,TOTAL 0.7 mg/dL (0.2-1); BLOOD UREA NITROGEN 14.2 mg/dL (7-18); CALCIUM 9.3 mg/dL (8.5-10.1); CREATININE 0.8 mg/dL (0.55-1.3); POTASSIUM 3.9 mmol/L (3.5-5.1)
--- NOTE | 2019-08-10 12:35 | PN ---
Progress Note, Physician History of Present Illness: events noted chart reviewed no lightheadedness no fall. Patient is due for open reduction internal fixation. - Current Medication List Current Medications: Active Medications Amlodipine Besylate (Norvasc -) 10 mg PO DAILY [facility] Last Admin: 08/10/19 09:39 Dose: 10 mg Documented by: Aspirin (Asa -) 81 mg PO DAILY [facility] Last Admin: 08/10/19 09:39 Dose: 81 mg Documented by: Atorvastatin Calcium (Lipitor -) 80 mg PO HS [facility] Last Admin: 08/09/19 21:32 Dose: 80 mg Documented by: Clopidogrel Bisulfate (Plavix -) 75 mg PO DAILY [facility] Last Admin: 08/10/19 09:39 Dose: 75 mg Documented by: Docusate Sodium (Colace -) 100 mg PO TID [facility] Last Admin: 08/10/19 05:31 Dose: 100 mg Documented by: Heparin Sodium (Porcine) (Heparin -) 5,000 unit SQ TID [facility] Last Admin: 08/10/19 05:34 Dose: 5,000 unit Documented by: Hydrochlorothiazide (Hctz -) 12.5 mg PO DAILY [facility] Last Admin: 08/10/19 09:39 Dose: 12.5 mg Documented by: Morphine Sulfate (Morphine Sulfate) 2 mg IVPUSH Q4H PRN PRN Reason: PAIN LEVEL 6-10 Last Admin: 08/10/19 05:54 Dose: 2 mg Documented by: Polyethylene Glycol (Miralax (For Daily Use) -) 17 gm PO DAILY [facility] Last Admin: 08/10/19 09:39 Dose: 17 gm Documented by: - Objective Vital Signs: Vital Signs Temperature 98.4 F 08/10/19 10:00 Pulse Rate 58 L 08/10/19 10:00 Respiratory Rate 20 08/10/19 10:00 Blood Pressure 150/76 08/10/19 10:00 O2 Sat by Pulse Oximetry (%) 96 08/10/19 09:00 Constitutional: Yes: Well Nourished Eyes: Yes: WNL HENT: Yes: WNL Musculoskeletal: Yes: Back Pain, Joint Stiffness Neurological: Yes: Alert, Oriented, Cran Nerves II-XII Intact ...Motor Strength: WNL Labs: CBC, BMP 08/10/19 10:45 08/10/19 10:45 INR, PTT INR 1.05 (0.83-1.09) 08/08/19 02:12 Problem List - Problems (1) Bimalleolar ankle fracture Code(s): S82.843A - DISPLACED BIMALLEOLAR FRACTURE OF UNSP LOWER LEG, INIT Qualifiers: Encounter type: initial encounter Fracture type: closed Laterality: left Qualified Code(s): S82.842A - Displaced bimalleolar fracture of left lower leg, initial encounter for closed fracture (2) Bradycardia Code(s): R00.1 - BRADYCARDIA, UNSPECIFIED (3) CVA (cerebral vascular accident) Code(s): I63.9 - CEREBRAL INFARCTION, UNSPECIFIED Qualifiers: CVA mechanism: unspecified Qualified Code(s): I63.9 - Cerebral infarction, unspecified Assessment/Plan 1. Continue aspirin and Plavix kick in stop for 72 hours before the surgery needed. 2. Subcutaneous heparin. 3. Repeat CAT scan. 4. Physical therapy at bedside.
[2019-08-10] MEDS: ATORVASTATIN CA 80 MG TABLET (FP) PO SCH (22:27)
[2019-08-11] MEDS: DOCUSATE SODIUM 100 MG CAPSULE (FP) PO SCH ×3 (05:51→22:05)
[2019-08-11] MEDS: HEPARIN NA (PORCINE) 5,000 UNITS/ML 1ML VIAL SQ SCH ×3 (05:51→22:05)
--- NOTE | 2019-08-11 08:20 | PN ---
Progress Note, Physician Chief Complaint: Seen and examined in bed. States pain is tolerable with pain medication. Repeat COVID pending for possible OR tmrw f History of Present Illness: Patient is a 64 year female with a significant past medical history of hypertension, hld, TBI in 2005, CVA 05/2019 who presents to the ED on 08/07/2019 came s/p Fall. Patient says she was walking yesterday when she suddenly felt lig htheaded which caused her to fall on her left ankle. Patient denies sob, chest pain, palpitations, numbness, tingling, nausea, vomiting, headache, weakness, slurring of speech, urinary changes. covid status: negative - Current Medication List Current Medications: Active Medications Amlodipine Besylate (Norvasc -) 10 mg PO DAILY [facility] Last Admin: 08/10/19 09:39 Dose: 10 mg Documented by: Aspirin (Asa -) 81 mg PO DAILY [facility] Last Admin: 08/10/19 09:39 Dose: 81 mg Documented by: Atorvastatin Calcium (Lipitor -) 80 mg PO HS [facility] Last Admin: 08/10/19 22:27 Dose: 80 mg Documented by: Clopidogrel Bisulfate (Plavix -) 75 mg PO DAILY [facility] Last Admin: 08/10/19 09:39 Dose: 75 mg Documented by: Docusate Sodium (Colace -) 100 mg PO TID [facility] Last Admin: 08/11/19 05:51 Dose: 100 mg Documented by: Heparin Sodium (Porcine) (Heparin -) 5,000 unit SQ TID [facility] Last Admin: 08/11/19 05:51 Dose: 5,000 unit Documented by: Hydrochlorothiazide (Hctz -) 12.5 mg PO DAILY [facility] Last Admin: 08/10/19 09:39 Dose: 12.5 mg Documented by: Morphine Sulfate (Morphine Sulfate) 2 mg IVPUSH Q4H PRN PRN Reason: PAIN LEVEL 6-10 Last Admin: 08/10/19 23:30 Dose: 2 mg Documented by: Polyethylene Glycol (Miralax (For Daily Use) -) 17 gm PO DAILY [facility] Last Admin: 08/10/19 09:39 Dose: 17 gm Documented by: - Objective Vital Signs: Vital Signs Temperature 97.6 F 08/11/19 06:00 Pulse Rate 56 L 08/11/19 06:00 Respiratory Rate 18 08/11/19 06:00 Blood Pressure 143/61 08/11/19 06:00 O2 Sat by Pulse Oximetry (%) 96 08/10/19 21:00 Constitutional: Yes: Well Nourished, No Distress, Calm Eyes: Yes: WNL, Conjunctiva Clear HENT: Yes: WNL, Atraumatic, Normocephalic Neck: Yes: WNL, Supple, Trachea Midline Cardiovascular: Yes: WNL, Regular Rate and Rhythm Respiratory: Yes: WNL, Regular, CTA Bilaterally Gastrointestinal: Yes: WNL, Normal Bowel Sounds ...Rectal Exam: Yes: Deferred Genitourinary: Yes: WNL Breast(s): Yes: WNL Musculoskeletal: Yes: Other (left foot with cast to ankle fx) Extremities: Yes: Other (able to wiggle exposed toes to left foot) Edema: No Peripheral Pulses WNL: Yes Peripheral Pulses: Left Radial: 2+, Right Radial: 2+, Left Doralis Pedis: 0 (cast in place), Right Dorsalis Pedis: 2+, Left Femoral: 2+, Right Femoral: 2+ Integumentary: Yes: WNL Neurological: Yes: WNL, Alert, Oriented ...Motor Strength: LLE (decreased to left foot r/t fx) Labs: CBC, BMP 08/10/19 10:45 08/10/19 10:45 INR, PTT INR 1.05 (0.83-1.09) 08/08/19 02:12 Problem List - Problems (1) TBI (traumatic brain injury) Assessment/Plan: TBI in past residual memory deficits Code(s): S06.9X9A - UNSP INTRACRANIAL INJURY W LOC OF UNSP DURATION, INIT (2) Fall Assessment/Plan: s/p fall with left ankle fx ortho following possible OR tmrw or thurs for ORIF Code(s): W19.XXXA - UNSPECIFIED FALL, INITIAL ENCOUNTER (3) Prophylactic measure Assessment/Plan: FEN Fluids: adequate PO intake Electrolytes: monitor & replete as needed Nutrition: low sodium diet DVT moderate risk sq heparin Dispo Maintain as inpatient full code discharge planning to [place] Code(s): Z29.9 - ENCOUNTER FOR PROPHYLACTIC MEASURES, UNSPECIFIED (4) Bimalleolar ankle fracture Assessment/Plan: s/p fall foot xray: a lateral malleolar fracture seen. ortho following pain management with morphine/roxicodone, maintain left foot elevated on 3 pill ows. monitor limb. s/p reduction by ortho with cast in place completed antibiotics x 24 hours ORIF this week per ortho, repeat COVID pending Code(s): S82.843A - DISPLACED BIMALLEOLAR FRACTURE OF UNSP LOWER LEG, INIT Qualifiers: Encounter type: initial encounter Fracture type: closed Laterality: left Qualified Code(s): S82.842A - Displaced bimalleolar fracture of left lower leg, initial encounter for closed fracture (5) CVA (cerebral vascular accident) Assessment/Plan: c/w asa/plavix. neuro following head ct negative for acute process Code(s): I63.9 - CEREBRAL INFARCTION, UNSPECIFIED Qualifiers: CVA mechanism: unspecified Qualified Code(s): I63.9 - Cerebral infarction, unspecified (6) Fatty liver Assessment/Plan: monitor LFTs avoid hepatotoxic agents Code(s): K76.0 - FATTY (CHANGE OF) LIVER, NOT ELSEWHERE CLASSIFIED (7) HLD (hyperlipidemia) Code(s): E78.5 - HYPERLIPIDEMIA, UNSPECIFIED (8) Hypertension Assessment/Plan: normotensive c/w hctz Code(s): I10 - ESSENTIAL (PRIMARY) HYPERTENSION (9) Pain Assessment/Plan: perfecto/MS04 for pain Code(s): R52 - PAIN, UNSPECIFIED Visit type - Emergency Visit Emergency Visit: Yes ED Registration Date: 08/10/19 Care time: The patient presented to the Emergency Department on the above date and was hospitalized for further evaluation of their emergent condition. - New Patient This patient is new to me today: Yes Date on this admission: 08/11/19 - Critical Care Critical Care patient: No - Discharge Referral Referred to [facility] Med P.C.: No
[2019-08-11] MEDS: POLYETHYLENE GLYCOL 3350 119 GM BTL PO SCH (10:00)
[2019-08-11] MEDS: amLODIPine BESYLATE 10 MG TABLET (FP) PO SCH (10:00)
[2019-08-11] MEDS: CLOPIDOGREL BISULFATE 75 MG TABLET (FP) PO SCH (10:00)
[2019-08-11] MEDS: HYDROCHLOROTHIAZIDE 12.5 MG CAPSULE (FP) PO SCH (10:00)
[2019-08-11] MEDS: MORPHINE SULFATE 2 MG/ML VIAL IVPUSH PRN ×2 (11:14→22:05)
[2019-08-11] MEDS ORDERED: oxyCODONE HCL 5 MG TABLET PO PRN (11:34)
[2019-08-11 12:26] LABS: BASO % 0.3 % (0-2.0); EOS % 1.1 % (0-4.5); HEMOGLOBIN 12.2 GM/dL (10.7-15.3); LYMPH % 22.2 % (8-40); MCH 31.3 pg (25.7-33.7); MEAN CELL VOLUME 92.3 fl (80-96); MEAN PLT VOLUME 9.3 fl (7.5-11.1); NEUT % 70.4 % (42.8-82.8); PLATELET COUNT 260 K/MM3 (134-434); RDW 15.3 % (11.6-15.6)
[2019-08-11 12:47] LABS: ALBUMIN 3.3 g/dl (3.4-5.0); BILIRUBIN,TOTAL 0.6 mg/dL (0.2-1); BLOOD UREA NITROGEN 18.1 mg/dL (7-18); CALCIUM 9.4 mg/dL (8.5-10.1); CREATININE 0.9 mg/dL (0.55-1.3); MAGNESIUM 2.2 mg/dL (1.8-2.4); POTASSIUM 4.1 mmol/L (3.5-5.1); TOT PROT 7.3 g/dl (6.4-8.2)
[2019-08-11] MEDS: ASPIRIN 81 MG CHEWABLE TABLETS PO SCH (13:51)
[2019-08-11] MEDS: ATORVASTATIN CA 80 MG TABLET (FP) PO SCH (22:04)
[2019-08-12] MEDS: HEPARIN NA (PORCINE) 5,000 UNITS/ML 1ML VIAL SQ SCH ×3 (06:25→21:34)
[2019-08-12] MEDS: MORPHINE SULFATE 2 MG/ML VIAL IVPUSH PRN (06:27)
[2019-08-12] MEDS: DOCUSATE SODIUM 100 MG CAPSULE (FP) PO SCH ×3 (08:28→21:34)
--- NOTE | 2019-08-12 08:43 | PN ---
Progress Note, Physician Chief Complaint: Seen and examined in bed. Repeat COVID negative. Plan for OR today History of Present Illness: Patient is a 64 year female with a significant past medical history of hypertension, hld, TBI in 2005, CVA 05/2019 who presents to the ED on 08/07/2019 came s/p Fall. Patient says she was walking yesterday when she suddenly felt lightheaded which caused her to fall on her left ankle. Patient denies sob, chest pain, palpitations, numbness, tingling, nausea, vomiting, headache, wea kness, slurring of speech, urinary changes. covid status: negative - Current Medication List Current Medications: Active Medications Amlodipine Besylate (Norvasc -) 10 mg PO DAILY [facility] Last Admin: 08/11/19 10:00 Dose: 10 mg Documented by: Aspirin (Asa -) 81 mg PO DAILY [facility] Last Admin: 08/11/19 13:51 Dose: Not Given Documented by: Atorvastatin Calcium (Lipitor -) 80 mg PO HS [facility] Last Admin: 08/11/19 22:04 Dose: 80 mg Documented by: Clopidogrel Bisulfate (Plavix -) 75 mg PO DAILY [facility] Last Admin: 08/11/19 10:00 Dose: 75 mg Documented by: Docusate Sodium (Colace -) 100 mg PO TID [facility] Last Admin: 08/12/19 08:28 Dose: Not Given Documented by: Heparin Sodium (Porcine) (Heparin -) 5,000 unit SQ TID [facility] Last Admin: 08/12/19 06:25 Dose: 5,000 unit Documented by: Hydrochlorothiazide (Hctz -) 12.5 mg PO DAILY [facility] Last Admin: 08/11/19 10:00 Dose: 12.5 mg Documented by: Morphine Sulfate (Morphine Sulfate) 2 mg IVPUSH Q4H PRN PRN Reason: PAIN LEVEL 7 - 10 Last Admin: 08/12/19 06:27 Dose: 2 mg Documented by: Oxycodone HCl (Roxicodone -) 5 mg PO Q4H PRN PRN Reason: PAIN LEVEL 4 - 6 Last Admin: 08/11/19 18:24 Dose: 5 mg Documented by: Polyethylene Glycol (Miralax (For Daily Use) -) 17 gm PO DAILY [facility] Last Admin: 08/11/19 10:00 Dose: Not Given Documented by: - Objective Vital Signs: Vital Signs Temperature 98.4 F 08/12/19 05:00 Pulse Rate 68 08/12/19 05:00 Respiratory Rate 18 08/12/19 05:00 Blood Pressure 141/49 L 08/12/19 05:00 O2 Sat by Pulse Oximetry (%) 96 08/11/19 21:00 Additional Findings/Remarks: Constitutional: Yes: Well Nourished, No Distress, Calm Eyes: Yes: WNL, Conjunctiva Clear HENT: Yes: WNL, Atraumatic, Normocephalic Neck: Yes: WNL, Supple, Trachea Midline Cardiovascular: Yes: WNL, Regular Rate and Rhythm Respiratory: Yes: WNL, Regular, CTA Bilaterally Gastrointestinal: Yes: WNL, Normal Bowel Sounds ...Rectal Exam: Yes: Deferred Genitourinary: Yes: WNL Breast(s): Yes: WNL Musculoskeletal: Yes: Other (left foot with cast to ankle fx) Extremities: Yes: Other (able to wiggle exposed toes to left foot) Edema: No Peripheral Pulses WNL: Yes Peripheral Pulses: Left Radial: 2+, Right Radial: 2+, Left Doralis Pedis: 0 (cast in place), Right Dorsalis Pedis: 2+, Left Femoral: 2+, Right Femoral: 2+ Integumentary: Yes: WNL Neurological: Yes: WNL, Alert, Oriented ...Motor Strength: LLE (decreased to left foot r/t fx) Labs: CBC, BMP 08/11/19 11:45 08/11/19 06:00 INR, PTT INR 1.05 (0.83-1.09) 08/08/19 02:12 Problem List - Problems (1) TBI (traumatic brain injury) Assessment/Plan: TBI in past residual memory deficits supportive care Code(s): S06.9X9A - UNSP INTRACRANIAL INJURY W LOC OF UNSP DURATION, INIT (2) Fall Assessment/Plan: s/p fall with left ankle fx plan for ORIF today Code(s): W19.XXXA - UNSPECIFIED FALL, INITIAL ENCOUNTER (3) Prophylactic measure Assessment/Plan: FEN Fluids: NPO Electrolytes: monitor & replete as needed Nutrition: low sodium diet after OR DVT moderate risk sq heparin ro resume after OR Dispo Maintain as inpatient full code discharge planning to [place] Code(s): Z29.9 - ENCOUNTER FOR PROPHYLACTIC MEASURES, UNSPECIFIED (4) Bimalleolar ankle fracture Assessment/Plan: s/p fall foot xray: a lateral malleolar fracture seen. ortho plan for OR today pain management with morphine/roxicodone, maintain left foot elevated on 3 pillows. monitor limb. s/p reduction by ortho with cast in place completed antibiotics x 24 hours Code(s): S82.843A - DISPLACED BIMALLEOLAR FRACTURE OF UNSP LOWER LEG, INIT Qualifiers: Encounter type: initial encounter Fracture type: closed Laterality: left Qualified Code(s): S82.842A - Displaced bimalleolar fracture of left lower leg, initial encounter for closed fracture (5) CVA (cerebral vascular accident) Assessment/Plan: c/w asa/plavix. neuro following head ct negative for acute process Code(s): I63.9 - CEREBRAL INFARCTION, UNSPECIFIED Qualifiers: CVA mechanism: unspecified Qualified Code(s): I63.9 - Cerebral infarction, unspecified (6) Fatty liver Assessment/Plan: monitor LFTs avoid hepatotoxic agents Code(s): K76.0 - FATTY (CHANGE OF) LIVER, NOT ELSEWHERE CLASSIFIED (7) HLD (hyperlipidemia) Code(s): E78.5 - HYPERLIPIDEMIA, UNSPECIFIED (8) Hypertension Assessment/Plan: normotensive c/w hctz Code(s): I10 - ESSENTIAL (PRIMARY) HYPERTENSION (9) Pain Assessment/Plan: perfecto/MS04 for pain Code(s): R52 - PAIN, UNSPECIFIED (10) COVID-19 Assessment/Plan: COVID negative x 2 cleared for OR Code(s): U07.1 - COVID POSITIVE Visit type - Emergency Visit Emergency Visit: Yes ED Registration Date: 08/10/19 Care time: The patient presented to the Emergency Department on the above date and was hospitalized for further evaluation of their emergent condition. - New Patient This patient is new to me today: No - Critical Care Critical Care patient: No - Discharge Referral Referred to [facility] Med P.C.: No
[2019-08-12] MEDS: amLODIPine BESYLATE 10 MG TABLET (FP) PO SCH (10:08)
[2019-08-12] MEDS: HYDROCHLOROTHIAZIDE 12.5 MG CAPSULE (FP) PO SCH (10:08)
[2019-08-12] MEDS: POLYETHYLENE GLYCOL 3350 119 GM BTL PO SCH (10:12)
[2019-08-12 12:36] LABS: BASO % 0.6 % (0-2.0); EOS % 1.8 % (0-4.5); HEMOGLOBIN 12.7 GM/dL (10.7-15.3); LYMPH % 26.7 % (8-40); MCH 31.2 pg (25.7-33.7); MCHC 33.5 g/dl (32.0-36.0); MEAN CELL VOLUME 93.1 fl (80-96); MEAN PLT VOLUME 9.5 fl (7.5-11.1); MONO % 5.7 % (3.8-10.2); NEUT % 65.2 % (42.8-82.8); PLATELET COUNT 256 K/MM3 (134-434); RBC 4.08 M/mm3 (3.60-5.2); RDW 15.8 % (11.6-15.6); WHITE BLOOD COUNT 8.5 K/mm3 (4.0-10.0)
[2019-08-12 13:02] LABS: ALBUMIN 3.4 g/dl (3.4-5.0); BILIRUBIN,TOTAL 0.6 mg/dL (0.2-1); BLOOD UREA NITROGEN 20.1 mg/dL (7-18); MAGNESIUM 2.4 mg/dL (1.8-2.4); POTASSIUM 5.3 mmol/L (3.5-5.1); TOT PROT 7.4 g/dl (6.4-8.2)
[2019-08-12 13:03] LABS: CREATININE 0.9 mg/dL (0.55-1.3)
[2019-08-12] MEDS ORDERED: BUPIVACAINE LIPOSOME/PF (EXPAREL) 266 MG/20 ML VIAL ONE (15:21)
[2019-08-12] MEDS ORDERED: MIDAZOLAM HCL 2 MG/2 ML SINGLE DOSE VIAL ONE ×3 (15:23→15:37)
[2019-08-12] MEDS ORDERED: ONDANSETRON 4 MG/2 ML VIAL ONE (15:36)
[2019-08-12] MEDS ORDERED: DEXAMETHASONE SOD PHOSPHATE 4 MG/1 ML VIAL ONE (15:36)
[2019-08-12] MEDS ORDERED: PROPOFOL 20 ML ONE ×2 (15:36)
[2019-08-12] MEDS ORDERED: KETOROLAC TROMETHAMINE 30 MG/1 ML VIAL ONE (15:36)
[2019-08-12] MEDS ORDERED: ceFAZolin SODIUM 1 GM VIAL ONE (15:36)
[2019-08-12] MEDS ORDERED: ceFAZolin SODIUM 1 GM VIAL IVPB ONE (16:40)
[2019-08-12] MEDS ORDERED: ACETAMINOPHEN 325 MG TABLET (FP) PO PRN ×2 (18:48→19:57)
[2019-08-12] MEDS ORDERED: DEXTROSE 2.5%-0.45% SALINE - 1,000 ML IV SCH (19:00)
--- NOTE | 2019-08-12 19:39 | OP ---
DATE OF OPERATION: 08/12/2019 PREOPERATIVE DIAGNOSIS: Left ankle bimalleolar fracture dislocation. POSTOPERATIVE DIAGNOSIS: Left ankle bimalleolar fracture dislocation. PROCEDURE: Left ankle open reduction, internal fixation. SURGEON: Margy Valentin MD. NAILHEAD PUNCHER: SARA Santoyo, physician dental assistant instructor, whose skillful assistance was necessary for the safe and timely performance of this procedure. Ms. Gramajo was able to provide limb positioning, retraction, assist in fracture reduction, as well as the insertion of orthopedic fixation hardware. ANESTHESIA: Regional plus general. POSTOPERATIVE CONDITION: Stable. COMPLICATIONS: None. IMPLANTS: Arthrex distal fibular plate, Arthrex 1/3 tibial plate, 7-hole, with 3.5-mm locking and nonlocking screws, one 3.0-mm lag screw in the fibular as well as the Arthrex plate medially with one 3.5-mm, one 4-0 cancellus, and three 2.7-mm locking screws. INDICATION: This is a pleasant woman who suffered an ankle fracture dislocation. She had successful postreduction dislocation, but remained with displaced medial and lateral malleolar fracture. Treatment options including nonoperative versus operative management were reviewed. Operative risks were reviewed in detail including bleeding, infection, neurovascular injury, need for further surgery, postoperative pain and stiffness, nonunion, malunion, hardware failure or cutout . We discussed medical risks such as heart attack, stroke, DVT, PE, and . I addressed the use of preoperative antibiotics and DVT prophylaxis. I raised the possibility of removal of hardware at a later date. I addressed all the patient's concerns and questions. She voiced understanding and elected to proceed. DESCRIPTION OF PROCEDURE: The patient was brought to the operating room where general anesthesia was administered after administration of regional block in the preoperative holding area. The left lower extremity was then prepped and draped in the usual sterile fashion. A perioperative dose of antibiotics was given, and the usual timeout procedure performed. Initially attention was turned laterally. Incision was marked out over the fibular fracture. This was then carried down through skin and subcutaneous tissue. Blunt spreading was used to expose the fascia, which was spread in line with the fibula. The periosteum was then exposed and elevated both anteriorly and posteriorly to expose the fracture site. The fracture site was now debrided of any loose debris. The fracture site was held in place with reduction forceps with anatomic reduction. Fluoroscopy was used to confirm fracture reduction which was satisfactory. A 3-0 was then drilled across the fracture site in standard lag fashion. The screw was inserted. Excellent purchase was achieved. Radiographs were obtained demonstrating satisfactory reduction of hardware placement. The clamp was then removed. Neutral fixation plate was then chosen, and affixed proximally using a combination of locking and nonlocking screws, and the distal plate using the same combination. Initially a 4-0 cancellous screw was used to fixate the most distal hole to fix the plate down to the bone, but given that it had limited purchase, it was changed out for a locking screw. The entire construct was then examined visually and fluoroscopically and both fracture and hardware placement were satisfactory. Attention was now turned medially. Here, a curvilinear incision was planned out over the medial malleolus. This was then carried down through skin and subcutaneous tissue. Again, blunt spreading was used to spread through the subcutaneous layers and expose the fascia over the bone, which was then split along the direction of the fracture. Fracture site was debrided. It was irrigated. The fracture was now held in place with the reduction forceps and then fixated in place with a Oscar wire. Fracture reduction was verified fluoroscopically. Given the fracture it was felt that cannulated screws alone were not going to provide the adequate stability, and it was decided to use a hook plate. A hook plate was then crimped into place over the medial malleolus. It was then tightened further by drilling a cancellous screw and placing it in compression mode. A 2nd more proximal screw was placed in cortical fashion. Following this, additional distal fixation was achieved by drilling the 2 sets of locking screws, inserting into the construct. At this point, the entire construct was examined both visually and fluoroscopically. Both fracture reduction and hardware placement were satisfactory. The wounds were now irrigated. The ankle was passed through an external rotation live stress test, and no widening of the space was seen, confirming syndesmosis was intact. The fascia was then closed using 2-0 Vicryl. The subcutaneous tissue was closed using 2-0 Vicryl. The skin was closed using 3-0 nylon. Sterile dressing were placed. The patient was placed in short-leg cast. She was transferred to recovery room in stable condition. MARGY VALENTIN M.D. [facility]/[id number]
[2019-08-12] MEDS ORDERED: MORPHINE SULFATE 2 MG/ML VIAL IVPUSH PRN (19:57)
[2019-08-12] MEDS ORDERED: oxyCODONE HCL 5 MG TABLET PO PRN (19:57)
[2019-08-12 20:38] LABS: HEMATOCRIT 36.5 % (32.4-45.2); MCH 30.7 pg (25.7-33.7); MCHC 32.8 g/dl (32.0-36.0); MEAN CELL VOLUME 93.6 fl (80-96); PLATELET COUNT 283 K/MM3 (134-434); RBC 3.91 M/mm3 (3.60-5.2); RDW 15.3 % (11.6-15.6); WHITE BLOOD COUNT 14.5 K/mm3 (4.0-10.0)
[2019-08-12] MEDS: ATORVASTATIN CA 80 MG TABLET (FP) PO SCH (21:34)
[2019-08-12] MEDS: FERROUS SO4 325 MG TABLET (FP) PO SCH (21:34)
[2019-08-12] MEDS: ASCORBIC ACID 500 MG TABLET (FP) PO SCH (21:34)
[2019-08-12] MEDS ORDERED: ASCORBIC ACID 500 MG TABLET (FP) PO SCH (22:00)
[2019-08-12] MEDS ORDERED: FERROUS SO4 325 MG TABLET (FP) PO SCH (22:00)
[2019-08-13] MEDS ORDERED: CEFAZOLIN 1 GM in DEXTROSE 5%-WATER - 50 ML IVPB SCH (01:00)
[2019-08-13] MEDS ORDERED: DEXTROSE 5%-WATER - 50 ML IVPB ONE ×2 (01:10→09:05)
[2019-08-13] MEDS ORDERED: ceFAZolin SODIUM 1 GM VIAL ONE ×2 (01:10→09:05)
[2019-08-13] MEDS: CEFAZOLIN 1 GM in DEXTROSE 5%-WATER - 50 ML IVPB SCH ×2 (01:12→09:36)
[2019-08-13] MEDS ORDERED: MELATONIN 5 MG TABLETS PO ONE (01:38)
[2019-08-13] MEDS: ASCORBIC ACID 500 MG TABLET (FP) PO SCH ×3 (06:14→21:59)
[2019-08-13] MEDS: HEPARIN NA (PORCINE) 5,000 UNITS/ML 1ML VIAL SQ SCH ×3 (06:15→21:59)
[2019-08-13] MEDS: DOCUSATE SODIUM 100 MG CAPSULE (FP) PO SCH ×3 (06:15→21:59)
[2019-08-13 07:30] LABS: BASO % 0.3 % (0-2.0); HEMATOCRIT 35.1 % (32.4-45.2); HEMOGLOBIN 11.6 GM/dL (10.7-15.3); LYMPH % 9.6 % (8-40); MCH 30.8 pg (25.7-33.7); MCHC 33.2 g/dl (32.0-36.0); MEAN CELL VOLUME 92.8 fl (80-96); MEAN PLT VOLUME 9.4 fl (7.5-11.1); MONO % 5.3 % (3.8-10.2); NEUT % 84.8 % (42.8-82.8); PLATELET COUNT 276 K/MM3 (134-434); RBC 3.78 M/mm3 (3.60-5.2); RDW 15.3 % (11.6-15.6); WHITE BLOOD COUNT 13.7 K/mm3 (4.0-10.0)
[2019-08-13 07:41] LABS: ALBUMIN 3.3 g/dl (3.4-5.0); BILIRUBIN,TOTAL 0.5 mg/dL (0.2-1); BLOOD UREA NITROGEN 24.5 mg/dL (7-18); CALCIUM 9.6 mg/dL (8.5-10.1); CREATININE 1.1 mg/dL (0.55-1.3); MAGNESIUM 2.4 mg/dL (1.8-2.4); POTASSIUM 4.3 mmol/L (3.5-5.1); TOT PROT 7.2 g/dl (6.4-8.2)
--- NOTE | 2019-08-13 08:09 | PN ---
Progress Note, Physician Chief Complaint: Seen and examined in bed. S/P ORIF bimalleolar ankle POD #1 Repeat COVID negative x 2. History of Present Illness: Patient is a 64 year female with a significant past medical history of hypertension, hld, TBI in 2005, CVA 05/2019 who presents to the ED on 08/07/2019 came s/p Fall. Patient says she was walking yesterday when she suddenly felt lightheaded which caused her to fall on her left ankle. Patient denies sob, chest pain, palpitations, numbness, tingling, nausea, vomiting, headache, weakness, slurring of speech, urinary changes. covid status: negative x2 - Current Medication List Current Medications: Active Medications Acetaminophen (Tylenol -) 650 mg PO Q4H PRN PRN Reason: FEVER Amlodipine Besylate (Norvasc -) 10 mg PO DAILY [facility] Ascorbic Acid (Vitamin C -) 500 mg PO TID [facility] Last Admin: 08/13/19 06:14 Dose: 500 mg Documented by: Aspirin (Asa -) 81 mg PO DAILY [facility] Atorvastatin Calcium (Lipitor -) 80 mg PO HS [facility] Last Admin: 08/12/19 21:34 Dose: 80 mg Documented by: Clopidogrel Bisulfate (Plavix -) 75 mg PO DAILY [facility] Docusate Sodium (Colace -) 100 mg PO TID [facility] Last Admin: 08/13/19 06:15 Dose: 100 mg Documented by: Ferrous Sulfate (Feosol -) 325 mg PO BID [facility] Last Admin: 08/12/19 21:34 Dose: 325 mg Documented by: Heparin Sodium (Porcine) (Heparin -) 5,000 unit SQ TID [facility] Last Admin: 08/13/19 06:15 Dose: 5,000 unit Documented by: Hydrochlorothiazide (Hctz -) 12.5 mg PO DAILY [facility] Cefazolin Sodium 1 gm/ (Dextrose) 50 mls @ 100 mls/hr IVPB Q8H [facility] Stop: 08/13/19 09:29 Last Admin: 08/13/19 01:12 Dose: 100 mls/hr Documented by: Morphine Sulfate (Morphine Sulfate) 2 mg IVPUSH Q4H PRN PRN Reason: PAIN LEVEL 7 - 10 Multivitamins/Minerals/Vitamin C (Tab-A-Vit -) 1 tab PO DAILY [facility] Oxycodone HCl (Roxicodone -) 5 mg PO Q4H PRN PRN Reason: PAIN LEVEL 4 - 6 Polyethylene Glycol (Miralax (For Daily Use) -) 17 gm PO DAILY [facility] - Objective Vital Signs: Vital Signs Temperature 97.8 F 08/13/19 06:00 Pulse Rate 59 L 08/13/19 06:00 Respiratory Rate 18 08/13/19 06:00 Blood Pressure 137/64 08/13/19 06:00 O2 Sat by Pulse Oximetry (%) 97 08/12/19 21:00 Labs: CBC, BMP 08/13/19 06:37 08/13/19 06:37 INR, PTT INR 1.05 (0.83-1.09) 08/08/19 02:12 Problem List - Problems (1) TBI (traumatic brain injury) Assessment/Plan: TBI in past residual memory deficits supportive care Code(s): S06.9X9A - UNSP INTRACRANIAL INJURY W LOC OF UNSP DURATION, INIT (2) Fall Assessment/Plan: s/p fall with left ankle fx s/p ORIF ankle PT following pt and plan for transfer to [place] for rehab Code(s): W19.XXXA - UNSPECIFIED FALL, INITIAL ENCOUNTER (3) Prophylactic measure Assessment/Plan: FEN Fluids: adequate PO intake Electrolytes: monitor & replete as needed Nutrition: low sodium diet after OR DVT moderate risk sq heparin Dispo Maintain as inpatient full code discharge planning to [place] Code(s): Z29.9 - ENCOUNTER FOR PROPHYLACTIC MEASURES, UNSPECIFIED (4) Bimalleolar ankle fracture Assessment/Plan: s/p fall foot xray: a lateral malleolar fracture seen. s/p ORIF pain management with morphine/roxicodone, maintain left foot elevated on 3 pillows. monitor limb Code(s): S82.843A - DISPLACED BIMALLEOLAR FRACTURE OF UNSP LOWER LEG, INIT Qualifiers: Encounter type: initial encounter Fracture type: closed Laterality: left Qualified Code(s): S82.842A - Displaced bimalleolar fracture of left lower leg, initial encounter for closed fracture (5) CVA (cerebral vascular accident) Assessment/Plan: c/w asa/plavix. neuro following head ct negative for acute process Code(s): I63.9 - CEREBRAL INFARCTION, UNSPECIFIED Qualifiers: CVA mechanism: unspecified Qualified Code(s): I63.9 - Cerebral infarction, unspecified (6) Fatty liver Assessment/Plan: monitor LFTs avoid hepatotoxic agents Code(s): K76.0 - FATTY (CHANGE OF) LIVER, NOT ELSEWHERE CLASSIFIED (7) HLD (hyperlipidemia) Code(s): E78.5 - HYPERLIPIDEMIA, UNSPECIFIED (8) Hypertension Assessment/Plan: normotensive c/w hctz Code(s): I10 - ESSENTIAL (PRIMARY) HYPERTENSION (9) Pain Assessment/Plan: perfecto/MS04 for pain Code(s): R52 - PAIN, UNSPECIFIED (10) COVID-19 Assessment/Plan: COVID negative x 2 Code(s): U07.1 - COVID POSITIVE Visit type - Emergency Visit Emergency Visit: Yes ED Registration Date: 08/10/19 Care time: The patient presented to the Emergency Department on the above date and was hospitalized for further evaluation of their emergent condition. - New Patient This patient is new to me today: No - Critical Care Critical Care patient: No - Discharge Referral Referred to [facility] Med [facility] No
[2019-08-13] MEDS: HYDROCHLOROTHIAZIDE 12.5 MG CAPSULE (FP) PO SCH (09:35)
[2019-08-13] MEDS: amLODIPine BESYLATE 10 MG TABLET (FP) PO SCH (09:35)
[2019-08-13] MEDS: CLOPIDOGREL BISULFATE 75 MG TABLET (FP) PO SCH (09:35)
[2019-08-13] MEDS: MULTIVITAMINS (DAILY MVI) TABLET (FP) PO SCH (09:35)
[2019-08-13] MEDS: FERROUS SO4 325 MG TABLET (FP) PO SCH ×2 (09:35→21:59)
[2019-08-13] MEDS: ASPIRIN 81 MG CHEWABLE TABLETS PO SCH (09:36)
[2019-08-13] MEDS ORDERED: MULTIVITAMINS (DAILY MVI) TABLET (FP) PO SCH (10:00)
[2019-08-13] MEDS: POLYETHYLENE GLYCOL 3350 119 GM BTL PO SCH (15:12)
--- NOTE | 2019-08-13 19:20 | PN ---
Progress Note (short form) - Note Progress Note: Pt lying comfortably in bed. Minimal pain. LLE cast in place toes with sensation grossly intact df pf intact cr<2 A L ankle ORIF P continue strict NWB oob/ambulate with walker dvt proph ok for dc to rehab elevate LLE when in chair or bed plan to have cast on 2 weeks then return to office for cast/suture removal
[2019-08-13] MEDS: ATORVASTATIN CA 80 MG TABLET (FP) PO SCH (21:59)
[2019-08-14] MEDS: HEPARIN NA (PORCINE) 5,000 UNITS/ML 1ML VIAL SQ SCH ×3 (06:12→21:49)
[2019-08-14] MEDS: ASCORBIC ACID 500 MG TABLET (FP) PO SCH ×3 (06:12→21:48)
[2019-08-14] MEDS: DOCUSATE SODIUM 100 MG CAPSULE (FP) PO SCH ×3 (06:12→21:46)
[2019-08-14 06:39] LABS: BASO % 0.8 % (0-2.0); EOS % 0.7 % (0-4.5); HEMATOCRIT 33.7 % (32.4-45.2); HEMOGLOBIN 11.1 GM/dL (10.7-15.3); LYMPH % 22.4 % (8-40); MCH 30.3 pg (25.7-33.7); MEAN CELL VOLUME 91.9 fl (80-96); MEAN PLT VOLUME 8.8 fl (7.5-11.1); NEUT % 69.1 % (42.8-82.8); PLATELET COUNT 280 K/MM3 (134-434); RBC 3.67 M/mm3 (3.60-5.2); RDW 15.6 % (11.6-15.6); WHITE BLOOD COUNT 9.8 K/mm3 (4.0-10.0)
[2019-08-14 07:19] LABS: ALBUMIN 3.1 g/dl (3.4-5.0); BILIRUBIN,TOTAL 0.4 mg/dL (0.2-1); CALCIUM 9.2 mg/dL (8.5-10.1); CREATININE 1.1 mg/dL (0.55-1.3); MAGNESIUM 2.3 mg/dL (1.8-2.4); POTASSIUM 3.9 mmol/L (3.5-5.1)
--- NOTE | 2019-08-14 07:39 | PN ---
Progress Note, Physician Chief Complaint: Seen and examined in bed. S/P ORIF bimalleolar ankle POD #3 Repeat COVID negative x 2. Pending bed at [facility] History of Present Illness: Patient is a 64 year female with a significant past medical history of hypertension, hld, TBI in 2005, CVA 05/2019 who presents to the ED on 08/07/2019 came s/p Fall. Patient says she was walking yesterday when she suddenly felt lightheaded which caused her to fall on her left ankle. Patient denies sob, chest pain, palpitations, numbness, tingling, nausea, vomiting, headache, weakness, slurring of speech, urinary changes. covid status: negative x2 - Current Medication List Current Medications: Active Medications Acetaminophen (Tylenol -) 650 mg PO Q4H PRN PRN Reason: FEVER Amlodipine Besylate (Norvasc -) 10 mg PO DAILY [facility] Last Admin: 08/13/19 09:35 Dose: 10 mg Documented by: Ascorbic Acid (Vitamin C -) 500 mg PO TID [facility] Last Admin: 08/14/19 06:12 Dose: 500 mg Documented by: Aspirin (Asa -) 81 mg PO DAILY [facility] Last Admin: 08/13/19 09:36 Dose: 81 mg Documented by: Atorvastatin Calcium (Lipitor -) 80 mg PO HS [facility] Last Admin: 08/13/19 21:59 Dose: 80 mg Documented by: Clopidogrel Bisulfate (Plavix -) 75 mg PO DAILY [facility] Last Admin: 08/13/19 09:35 Dose: 75 mg Documented by: Docusate Sodium (Colace -) 100 mg PO TID [facility] Last Admin: 08/14/19 06:12 Dose: Not Given Documented by: Ferrous Sulfate (Feosol -) 325 mg PO BID [facility] Last Admin: 08/13/19 21:59 Dose: 325 mg Documented by: Heparin Sodium (Porcine) (Heparin -) 5,000 unit SQ TID [facility] Last Admin: 08/14/19 06:12 Dose: 5,000 unit Documented by: Hydrochlorothiazide (Hctz -) 12.5 mg PO DAILY [facility] Last Admin: 08/13/19 09:35 Dose: 12.5 mg Documented by: Morphine Sulfate (Morphine Sulfate) 2 mg IVPUSH Q4H PRN PRN Reason: PAIN LEVEL 7 - 10 Multivitamins/Minerals/Vitamin C (Tab-A-Vit -) 1 tab PO DAILY [facility] Last Admin: 08/13/19 09:35 Dose: 1 tab Documented by: Oxycodone HCl (Roxicodone -) 5 mg PO Q4H PRN PRN Reason: PAIN LEVEL 4 - 6 Polyethylene Glycol (Miralax (For Daily Use) -) 17 gm PO DAILY [facility] Last Admin: 08/13/19 15:12 Dose: Not Given Documented by: - Objective Vital Signs: Vital Signs Temperature 100.3 F H 08/14/19 06:37 Pulse Rate 71 08/14/19 06:37 Respiratory Rate 18 08/14/19 06:37 Blood Pressure 148/84 08/14/19 06:37 O2 Sat by Pulse Oximetry (%) 97 08/13/19 21:00 Additional Findings/Remarks: Constitutional: Yes: Well Nourished, No Distress, Calm Eyes: Yes: WNL, Conjunctiva Clear HENT: Yes: WNL, Atraumatic, Normocephalic Neck: Yes: WNL, Supple, Trachea Midline Cardiovascular: Yes: WNL, Regular Rate and Rhythm Respiratory: Yes: WNL, Regular, CTA Bilaterally Gastrointestinal: Yes: WNL, Normal Bowel Sounds ...Rectal Exam: Yes: Deferred Genitourinary: Yes: WNL Breast(s): Yes: WNL Musculoskeletal: Yes: Other (left foot with cast to ankle fx) Extremities: Yes: Other (able to wiggle exposed toes to left foot) Edema: No Peripheral Pulses WNL: Yes Peripheral Pulses: Left Radial: 2+, Right Radial: 2+, Left Doralis Pedis: 0 (cast in place), Right Dorsalis Pedis: 2+, Left Femoral: 2+, Right Femoral: 2+ Integumentary: Yes: WNL Neurological: Yes: WNL, Alert, Oriented ...Motor Strength: LLE (decreased to left foot r/t fx) Labs: CBC, BMP 08/14/19 06:25 08/14/19 06:25 INR, PTT INR 1.05 (0.83-1.09) 08/08/19 02:12 Problem List - Problems (1) TBI (traumatic brain injury) Assessment/Plan: TBI in past residual memory deficits supportive care Code(s): S06.9X9A - UNSP INTRACRANIAL INJURY W LOC OF UNSP DURATION, INIT (2) Fall Assessment/Plan: s/p fall with left ankle fx s/p ORIF ankle PT following pt and plan for transfer to [place] for rehab Code(s): W19.XXXA - UNSPECIFIED FALL, INITIAL ENCOUNTER (3) Prophylactic measure Assessment/Plan: FEN Fluids: adequate PO intake Electrolytes: monitor & replete as needed Nutrition: low sodium diet DVT moderate risk sq heparin Dispo Maintain as inpatient full code discharge planning to [place] Code(s): Z29.9 - ENCOUNTER FOR PROPHYLACTIC MEASURES, UNSPECIFIED (4) Bimalleolar ankle fracture Assessment/Plan: s/p fall foot xray: a lateral malleolar fracture seen. s/p ORIF pod #3 pain management with morphine/roxicodone, maintain left foot elevated on 3 pillows. monitor limb plan to have cast on 2 weeks then return to office for cast/suture removal Code(s): S82.843A - DISPLACED BIMALLEOLAR FRACTURE OF UNSP LOWER LEG, INIT Qualifiers: Encounter type: initial encounter Fracture type: closed Laterality: left Qualified Code(s): S82.842A - Displaced bimalleolar fracture of left lower leg, initial encounter for closed fracture (5) CVA (cerebral vascular accident) Assessment/Plan: c/w asa/plavix. neuro following head ct negative for acute process Code(s): I63.9 - CEREBRAL INFARCTION, UNSPECIFIED Qualifiers: CVA mechanism: unspecified Qualified Code(s): I63.9 - Cerebral infarction, unspecified (6) Fatty liver Assessment/Plan: monitor LFTs avoid hepatotoxic agents Code(s): K76.0 - FATTY (CHANGE OF) LIVER, NOT ELSEWHERE CLASSIFIED (7) HLD (hyperlipidemia) Code(s): E78.5 - HYPERLIPIDEMIA, UNSPECIFIED (8) Hypertension Assessment/Plan: normotensive c/w hctz Code(s): I10 - ESSENTIAL (PRIMARY) HYPERTENSION (9) Pain Assessment/Plan: minimal pain perfecto for pain Code(s): R52 - PAIN, UNSPECIFIED (10) COVID-19 ruled out Assessment/Plan: COVID negative x 2 Code(s): Z03.818 - ENCNTR FOR OBS FOR SUSP EXPSR TO OTH BIOLG AGENTS RULED OUT Visit type - Emergency Visit Emergency Visit: Yes ED Registration Date: 08/10/19 Care time: The patient presented to the Emergency Department on the above date and was hospitalized for further evaluation of their emergent condition. - New Patient This patient is new to me today: No - Critical Care Critical Care patient: No - Discharge Referral Referred to [facility] Med [facility].C.: No
[2019-08-14] MEDS: CLOPIDOGREL BISULFATE 75 MG TABLET (FP) PO SCH (10:27)
[2019-08-14] MEDS: ASPIRIN 81 MG CHEWABLE TABLETS PO SCH (10:27)
[2019-08-14] MEDS: FERROUS SO4 325 MG TABLET (FP) PO SCH ×2 (10:27→21:48)
[2019-08-14] MEDS: HYDROCHLOROTHIAZIDE 12.5 MG CAPSULE (FP) PO SCH (10:27)
[2019-08-14] MEDS: MULTIVITAMINS (DAILY MVI) TABLET (FP) PO SCH (10:27)
[2019-08-14] MEDS: amLODIPine BESYLATE 10 MG TABLET (FP) PO SCH (10:27)
[2019-08-14] MEDS: POLYETHYLENE GLYCOL 3350 119 GM BTL PO SCH (10:28)
[2019-08-14] MEDS: ATORVASTATIN CA 80 MG TABLET (FP) PO SCH (21:48)
[2019-08-15] MEDS: HEPARIN NA (PORCINE) 5,000 UNITS/ML 1ML VIAL SQ SCH (06:38)
[2019-08-15] MEDS: DOCUSATE SODIUM 100 MG CAPSULE (FP) PO SCH (06:38)
[2019-08-15] MEDS: ASCORBIC ACID 500 MG TABLET (FP) PO SCH (06:38)
--- NOTE | 2019-08-15 07:53 | PN ---
Progress Note, Physician History of Present Illness: Patient is a 64 year female with a significant past medical history of hypertension, hld, TBI in 2005, CVA 05/2019 who presents to the ED on 08/07/2019 came s/p Fall. Patient says she was walking yesterday when she suddenly felt lightheaded which caused her to fall on her left ankle. Patient denies sob, chest pain, palpitations, numbness, tingling, nausea, vomiting, headache, weakness, slurring of speech, urinary changes. covid status: negative x2 - Current Medication List Current Medications: Active Medications Acetaminophen (Tylenol -) 650 mg PO Q4H PRN PRN Reason: FEVER Amlodipine Besylate (Norvasc -) 10 mg PO DAILY [facility] Last Admin: 08/14/19 10:27 Dose: 10 mg Documented by: Ascorbic Acid (Vitamin C -) 500 mg PO TID [facility] Last Admin: 08/15/19 06:38 Dose: 500 mg Documented by: Aspirin (Asa -) 81 mg PO DAILY [facility] Last Admin: 08/14/19 10:27 Dose: 81 mg Documented by: Atorvastatin Calcium (Lipitor -) 80 mg PO HS [facility] Last Admin: 08/14/19 21:48 Dose: 80 mg Documented by: Clopidogrel Bisulfate (Plavix -) 75 mg PO DAILY [facility] Last Admin: 08/14/19 10:27 Dose: 75 mg Documented by: Docusate Sodium (Colace -) 100 mg PO TID [facility] Last Admin: 08/15/19 06:38 Dose: Not Given Documented by: Ferrous Sulfate (Feosol -) 325 mg PO BID [facility] Last Admin: 08/14/19 21:48 Dose: 325 mg Documented by: Heparin Sodium (Porcine) (Heparin -) 5,000 unit SQ TID [facility] Last Admin: 08/15/19 06:38 Dose: Not Given Documented by: Hydrochlorothiazide (Hctz -) 12.5 mg PO DAILY [facility] Last Admin: 08/14/19 10:27 Dose: 12.5 mg Documented by: Multivitamins/Minerals/Vitamin C (Tab-A-Vit -) 1 tab PO DAILY [facility] Last Admin: 08/14/19 10:27 Dose: 1 tab Documented by: Oxycodone HCl (Roxicodone -) 5 mg PO Q4H PRN PRN Reason: PAIN LEVEL 4 - 6 Polyethylene Glycol (Miralax (For Daily Use) -) 17 gm PO DAILY [facility] Last Admin: 08/14/19 10:28 Dose: Not Given Documented by: - Objective Vital Signs: Vital Signs Temperature 98.1 F 08/15/19 06:00 Pulse Rate 60 08/15/19 06:00 Respiratory Rate 16 08/15/19 06:00 Blood Pressure 125/53 L 08/15/19 06:00 O2 Sat by Pulse Oximetry (%) 95 08/14/19 21:00 Labs: CBC, BMP 08/14/19 06:25 08/14/19 06:25 INR, PTT INR 1.05 (0.83-1.09) 08/08/19 02:12 Problem List - Problems (1) TBI (traumatic brain injury) Code(s): S06.9X9A - UNSP INTRACRANIAL INJURY W LOC OF UNSP DURATION, INIT (2) Fall Code(s): W19.XXXA - UNSPECIFIED FALL, INITIAL ENCOUNTER (3) Prophylactic measure Code(s): Z29.9 - ENCOUNTER FOR PROPHYLACTIC MEASURES, UNSPECIFIED (4) Bimalleolar ankle fracture Assessment/Plan: s/p fall foot xray: a lateral malleolar fracture seen. s/p ORIF pod #3 pain management with morphine/roxicodone, maintain left foot elevated on 3 pillows. monitor limb plan to have cast on 2 weeks then return to office for cast/suture removal continue strict NWB oob/ambulate with walker Code(s): S82.843A - DISPLACED BIMALLEOLAR FRACTURE OF UNSP LOWER LEG, INIT Qualifiers: Encounter type: initial encounter Fracture type: closed Laterality: left Qualified Code(s): S82.842A - Displaced bimalleolar fracture of left lower leg, initial encounter for closed fracture (5) CVA (cerebral vascular accident) Code(s): I63.9 - CEREBRAL INFARCTION, UNSPECIFIED Qualifiers: CVA mechanism: unspecified Qualified Code(s): I63.9 - Cerebral infarction, unspecified (6) Fatty liver Code(s): K76.0 - FATTY (CHANGE OF) LIVER, NOT ELSEWHERE CLASSIFIED (7) HLD (hyperlipidemia) Code(s): E78.5 - HYPERLIPIDEMIA, UNSPECIFIED (8) Hypertension Code(s): I10 - ESSENTIAL (PRIMARY) HYPERTENSION (9) Pain Code(s): R52 - PAIN, UNSPECIFIED (10) COVID-19 ruled out Code(s): Z03.818 - ENCNTR FOR OBS FOR SUSP EXPSR TO OT BIOLG AGENTS RULED OUT
[2019-08-15 08:29] LABS: BASO % 0.3 % (0-2.0); EOS % 1.6 % (0-4.5); HEMATOCRIT 34.2 % (32.4-45.2); HEMOGLOBIN 11.1 GM/dL (10.7-15.3); LYMPH % 25.5 % (8-40); MCHC 32.6 g/dl (32.0-36.0); MEAN CELL VOLUME 92.2 fl (80-96); MEAN PLT VOLUME 9.2 fl (7.5-11.1); MONO % 6.9 % (3.8-10.2); NEUT % 65.7 % (42.8-82.8); PLATELET COUNT 291 K/MM3 (134-434); RBC 3.71 M/mm3 (3.60-5.2); RDW 15.5 % (11.6-15.6); WHITE BLOOD COUNT 8.6 K/mm3 (4.0-10.0)
[2019-08-15 08:53] LABS: ALBUMIN 3.2 g/dl (3.4-5.0); BILIRUBIN,TOTAL 0.6 mg/dL (0.2-1); BLOOD UREA NITROGEN 30.2 mg/dL (7-18); CALCIUM 9.6 mg/dL (8.5-10.1); CREATININE 0.9 mg/dL (0.55-1.3); MAGNESIUM 2.3 mg/dL (1.8-2.4); POTASSIUM 4.1 mmol/L (3.5-5.1); TOT PROT 7.1 g/dl (6.4-8.2)
[2019-08-15] MEDS: MULTIVITAMINS (DAILY MVI) TABLET (FP) PO SCH (09:32)
[2019-08-15] MEDS: HYDROCHLOROTHIAZIDE 12.5 MG CAPSULE (FP) PO SCH (09:33)
[2019-08-15] MEDS: ASPIRIN 81 MG CHEWABLE TABLETS PO SCH (09:33)
[2019-08-15] MEDS: FERROUS SO4 325 MG TABLET (FP) PO SCH (09:33)
[2019-08-15] MEDS: amLODIPine BESYLATE 10 MG TABLET (FP) PO SCH (09:33)
[2019-08-15] MEDS: CLOPIDOGREL BISULFATE 75 MG TABLET (FP) PO SCH (09:33)
[2019-08-15] MEDS: POLYETHYLENE GLYCOL 3350 119 GM BTL PO SCH (09:33)
[2019-08-15 09:37] VITALS: BP 145/71; PULSE 53; TEMP 98.2
--- NOTE | 2019-08-15 10:28 | DS ---
Physical Exam: SUBJECTIVE: Patient seen and examined OBJECTIVE: Vital Signs Period Temp Pulse Resp BP Sys/Merritt Pulse Ox Last 24 Hr 97.6 F-98.5 F 53-60 16-18 125-168/52-78 95-100 PHYSICAL EXAM GENERAL: The patient is awake, alert, and fully oriented, in no acute distress. HEAD: Normal with no signs of trauma. EYES: PERRL, extraocular movements intact, sclera anicteric, conjunctiva clear. ENT: Ears normal, nares patent, oropharynx clear without exudates, moist mucous membranes. NECK: Trachea midline, full range of motion, supple. LUNGS: Breath sounds equal, clear to auscultation bilaterally, no wheezes, no crackles, no accessory muscle use. HEART: Regular rate and rhythm, S1, S2 without murmur, rub or gallop. ABDOMEN: Soft, nontender, nondistended, normoactive bowel sounds, no guarding, no rebound, no hepatosplenomegaly, no masses. EXTREMITIES: 2+ pulses, warm, well-perfused, no edema. NEUROLOGICAL: Cranial nerves II through XII grossly intact. Normal speech, gait not observed. PSYCH: Normal mood, normal affect. SKIN: Warm, dry, normal turgor, no rashes or lesions noted. LABS Laboratory Results - last 24 hr 08/15/19 08/15/19 06:38 06:38 WBC 8.6 RBC 3.71 Hgb 11.1 Hct 34.2 MCV 92.2 MCH 30.0 MCHC 32.6 RDW 15.5 Plt Count 291 MPV 9.2 Absolute Neuts (auto) 5.6 Neutrophils % 65.7 Lymphocytes % 25.5 Monocytes % 6.9 Eosinophils % 1.6 D Basophils % 0.3 Nucleated RBC % 0 Sodium 138 Potassium 4.1 Chloride 102 Carbon Dioxide 28 Anion Gap 7 L BUN 30.2 H Creatinine 0.9 Est GFR (CKD-EPI)AfAm 79.42 Est GFR (CKD-EPI)NonAf 68.53 Random Glucose 84 Calcium 9.6 Magnesium 2.3 Total Bilirubin 0.6 AST 34 ALT 34 Alkaline Phosphatase 182 H Total Protein 7.1 Albumin 3.2 L HOSPITAL COURSE: Date of Admission:08/10/19 Date of Discharge: 08/15/19 Patient is a 64 year female with a significant past medical history of hypertension, hld, TBI in 2005, CVA 05/2019 who presents to the ED on 08/07/2019 came s/p Fall. Patient says she was walking yesterday when she suddenly felt lightheaded which caused her to fall on her left ankle. POD #3 ORIF ankle Problem List - Problems (1) TBI (traumatic brain injury) Assessment/Plan: TBI in past residual memory deficits supportive care Code(s): S06.9X9A - UNSP INTRACRANIAL INJURY W LOC OF UNSP DURATION, INIT (2) Fall Assessment/Plan: s/p fall with left ankle fx s/p ORIF ankle PT following pt and plan for transfer to [place] for rehab Strict NWB-can get oob with walker for PT Elevate leg while in bed Code(s): W19.XXXA - UNSPECIFIED FALL, INITIAL ENCOUNTER (3) Prophylactic measure Assessment/Plan: FEN Fluids: adequate PO intake Electrolytes: monitor & replete as needed Nutrition: low sodium diet DVT moderate risk sq heparin until ambulatory Dispo Maintain as inpatient full code discharge planning to [place] Code(s): Z29.9 - ENCOUNTER FOR PROPHYLACTIC MEASURES, UNSPECIFIED (4) Bimalleolar ankle fracture Assessment/Plan: s/p fall foot xray: a lateral malleolar fracture seen. s/p ORIF pod #4 pain management with roxicodone, maintain left foot elevated on 3 pillows. Strict NWB-can get oob with walker for PT Elevate leg while in bed monitor limb plan to have cast on 2 weeks then return to office for cast/suture removal Code(s): S82.843A - DISPLACED BIMALLEOLAR FRACTURE OF UNSP LOWER LEG, INIT Qualifiers: Encounter type: initial encounter Fracture type: closed Laterality: left Qualified Code(s): S82.842A - Displaced bimalleolar fracture of left lower leg, initial encounter for closed fracture (5) CVA (cerebral vascular accident) Assessment/Plan: c/w asa/plavix. neuro following head ct negative for acute process Code(s): I63.9 - CEREBRAL INFARCTION, UNSPECIFIED Qualifiers: CVA mechanism: unspecified Qualified Code(s): I63.9 - Cerebral infarction, unspecified (6) Fatty liver Assessment/Plan: monitor LFTs avoid hepatotoxic agents Code(s): K76.0 - FATTY (CHANGE OF) LIVER, NOT ELSEWHERE CLASSIFIED (7) HLD (hyperlipidemia) Code(s): E78.5 - HYPERLIPIDEMIA, UNSPECIFIED (8) Hypertension Assessment/Plan: normotensive c/w hctz Code(s): I10 - ESSENTIAL (PRIMARY) HYPERTENSION (9) Pain Assessment/Plan: minimal pain perfecto for pain Code(s): R52 - PAIN, UNSPECIFIED (10) COVID-19 ruled out Assessment/Plan: COVID negative x 2 Code(s): Z03.818 - ENCNTR FOR OBS FOR SUSP EXPSR TO OT BIOLG AGENTS RULED OUT Cleared for dc to [place] for Rehab Minutes to complete discharge: 35 Discharge Summary Problems reviewed: Yes Reason For Visit: BIMALLEOLAR FRACTURE Current Active Problems Bimalleolar ankle fracture (Acute) COVID-19 (Acute) COVID-19 ruled out (Acute) Closed head injury (Acute) Fall (Acute) Fall (Acute) Pain (Acute) Prophylactic measure (Acute) TBI (traumatic brain injury) (Acute) Condition: Improved - Instructions Referrals: Kevin Mustafa MD [Primary Care Provider] - Disposition: HALFWAY FACILITY - Home Medications Comprehensive Discharge Medication List: Ambulatory Orders Amlodipine Besylate 10 mg PO DAILY 05/12/17 Aspirin [ASA -] 81 mg PO DAILY tab.chew 06/15/19 Atorvastatin Ca [Lipitor] 80 mg PO HS tablet 06/15/19 Hydrochlorothiazide [Hctz -] 12.5 mg PO DAILY cap 06/15/19 Clopidogrel Bisulfate [Plavix -] 75 mg PO DAILY #90 tablet 08/09/19 Prescription Drug Monitoring Program (I-STOP) results: I-STOP reviewed and no issues identified Problem List - Problems (1) TBI (traumatic brain injury) Code(s): S06.9X9A - UNSP INTRACRANIAL INJURY W LOC OF UNSP DURATION, INIT (2) Fall Code(s): W19.XXXA - UNSPECIFIED FALL, INITIAL ENCOUNTER (3) Prophylactic measure Code(s): Z29.9 - ENCOUNTER FOR PROPHYLACTIC MEASURES, UNSPECIFIED (4) Bimalleolar ankle fracture Code(s): S82.843A - DISPLACED BIMALLEOLAR FRACTURE OF UNSP LOWER LEG, INIT Qualifiers: Encounter type: initial encounter Fracture type: closed Laterality: left Qualified Code(s): S82.842A - Displaced bimalleolar fracture of left lower leg, initial encounter for closed fracture (5) CVA (cerebral vascular accident) Code(s): I63.9 - CEREBRAL INFARCTION, UNSPECIFIED Qualifiers: CVA mechanism: unspecified Qualified Code(s): I63.9 - Cerebral infarction, unspecified (6) Fatty liver Code(s): K76.0 - FATTY (CHANGE OF) LIVER, NOT ELSEWHERE CLASSIFIED (7) HLD (hyperlipidemia) Code(s): E78.5 - HYPERLIPIDEMIA, UNSPECIFIED (8) Hypertension Code(s): I10 - ESSENTIAL (PRIMARY) HYPERTENSION (9) Pain Code(s): R52 - PAIN, UNSPECIFIED (10) COVID-19 ruled out Code(s): Z03.818 - ENCNTR FOR OBS FOR SUSP EXPSR TO OTH BIOLG AGENTS RULED OUT This patient is new to me today: No Emergency Visit: Yes ED Registration Date: 08/10/19 Care time: The patient presented to the Emergency Department on the above date and was hospitalized for further evaluation of their emergent condition. Critical Care patient: No - Discharge Referral Referred to [facility] Med P.C.: No
== END 2019-08-15 11:57 | DRG 493 ==
LOC: JER 23:31 → JERBED 08-08 01:28 → J4S 08-08 15:12 → OBSVTOIN 08-10 10:28
PROVIDERS: ADMIT Internal Medicine; ATTEND Nurse Practitioner Acute Care
PROC: 0QSKXZZ Reposition Left Fibula, External Approach (ICD-10-PCS; principal; 2019-08-08)
PROC: 0QSK04Z Reposition Left Fibula with Internal Fixation Device, Open Approach (ICD-10-PCS; 2019-08-12)
DX: S82.842A Displaced bimalleolar fracture of left lower leg, initial encounter for closed fracture (principal); I69.354 Hemiplegia and hemiparesis following cerebral infarction affecting left non-dominant side; D72.829 Elevated white blood cell count, unspecified; I10 Essential (primary) hypertension; S91.012A Laceration without foreign body, left ankle, initial encounter; R00.1 Bradycardia, unspecified; E78.5 Hyperlipidemia, unspecified; I25.10 Atherosclerotic heart disease of native coronary artery without angina pectoris; F41.9 Anxiety disorder, unspecified; M19.90 Unspecified osteoarthritis, unspecified site; E03.9 Hypothyroidism, unspecified; K76.0 Fatty (change of) liver, not elsewhere classified; W01.0XXA Fall on same level from slipping, tripping and stumbling without subsequent striking against object, initial encounter; Y92.098 Other place in other non-institutional residence as the place of occurrence of the external cause; Z87.820 Personal history of traumatic brain injury
CPT/HCPCS: 36415; 70450-TC; 72125-TC; 73560-TC-LT-FY; 73610-TC-LT-FY; 73630-TC-LT; 76000-TC-FY; 80053; 83735; 84100; 85025; 85027; 85610; 85730; 86850; 86900; 86901; 87389; 93005; 93010; 94760; 97116-GP; 97162-GP; 99285-25; G0378; J0131; J1644; U0003